=== PATIENT | male | born 1995 | race Caucasian/White ===

== ENCOUNTER 2022-03-22 21:13 | Emergency (ER) | payer OTHER, BC, SELFPAY ==
[2022-03-22 21:50] VITALS: BP 143/85; PULSE 65; RESP 20; TEMP 36.7; O2SAT 98
--- OUTSIDE RECORDS SUMMARY | 2022-03-22 23:36 | XMS_ITS | Encounter Summary ---
:1995 Author Organization [facility] Address [address] [place] [address] Care Team Providers Name Role Phone Laura Tellez MD Primary Care Provider Unavailable Reason for Visit Reason Comments GERD Encounter Details Date Type Department Care Team Description 05/25/2021 Office Visit [place] Laura Tellez Gastroesophageal reflux [address] MD Earline disease, unspecified NW whether esophagitis [place], [place] present ([place]) [id number] Social History Tobacco Use Types Packs/Day Years Used Date Smoking Tobacco: Never Smokeless Tobacco: Never Alcohol Use Standard Drinks/Week Comments Not Currently 0 (1 standard drink = 0.6 oz pure alcoho l) Financial Resource Strain Answer Date Recorded How hard is it for you to pay for the very basics like Not h rajesh at all 04/12/2020 food, housing, medical care, and heating? Food Insecurity Answer Date Recorded Within the past 12 months, you worried that your food would Never true 04/12/2020 run out before you got money to buy more. Within the past 12 months, the food you bought just didn't N ever true 04/12/2020 last and you didn't have money to get more. Transportation Needs Answer Date Recorded In the past 12 months, has lack of transportation kept you f rom No 04/12/2020 medical appointments or from getting medications? In the past 12 months, has lack of transportation kept you f rom No 04/12/2020 meetings, work, or getting things needed for daily living? Sex Assigned at Date Recorded Not on file documented as of this encounter Last Filed Vital Signs Vital Sign Reading Time Taken Comments Blood Pressure 124/82 05/25/2021 3:37 PM POCKET MARKER Pulse 84 05/25/2021 3:37 PM POCKET MARKER Temperature 36.5 ??C (97.7 ??F) 05/25/2021 3:37 PM POCKET MARKER Respiratory Rate 16 05/25/2021 3:37 PM POCKET MARKER Oxygen Saturation 97% 05/25/2021 3:37 PM POCKET MARKER Inhaled Oxygen Concentration - - Weight 130 kg (287 lb 6.4 oz) 05/25/2021 3:37 PM POCKET MARKER wi th shoes Height 178.9 cm (5' 10.43) 05/25/2021 3:37 PM POCKET MARKER with shoes Body Mass Index 40.73 05/25/2021 3:37 PM POCKET MARKER documented in this encounter Patient Instructions Patient InstructionsFrances Earline Tellez MD - 05/25/2021 3:40 PM CST Images from the original note were not included. Patient Education Food Choices for Gastroesophageal Reflux Disease, Adult When you have gastroesophageal reflux disease (GERD), the foods you eat and your eating habits are very important. Choosing the right foods can help ease the discomfort of GERD. Consider working with adietitian to help you make healthy food choices. What are tips for following this plan? Reading food labels ?? Read the label for foods that are low in saturated fat. Foods that have less than 5% of daily value (DV) of fat and 0 g of trans fats may help with your symptoms. Cooking ?? Cook foods using methods other than frying. This may include baking, steaming, grilling, or broiling. These are all methods that do not need a lot of fat for cooking. ?? To add flavor, try to use herbs that are low in spice and acidity. Meal planning ?? Choose healthy foods that are low in fat, such as fruits, vegetables, whole grains, low-fat dairyproducts, lean meats, fish, and poultry. ?? Eat frequent, small meals instead of three large meals each day. Eat your meals slowly, in a relaxed setting. Avoid bending over or lying down until 2-3 hours after eating. ?? Limit high-fat foods such as fatty meats or fried foods. ?? Limit your intake of oils, butter, and shortening to less than 8 teaspoons each day. ?? Avoid the following: ? Foods that cause symptoms. These may be different for different people. Keep a food diary to keep track of foods that cause symptoms. ? Alcohol. ? Drinking large amounts of liquid with meals. ? Eating meals during the 2-3 hours before bed. Lifestyle ?? Maintain a healthy weight. Ask your health care provider what weight is healthy for you. If you need to lose weight, work with your health care provider to do so safely. ?? Exercise for at least 30 minutes on 5 or more days each week, or as told by your health care provider. ?? Avoid wearing clothes that fit tightly around your waist and chest. ?? Do not use any products that contain nicotine or tobacco, such as cigarettes, e-cigarettes, and chewing tobacco. If you need help quitting, ask your health care provider. ?? Sleep with the head of your bed raised. Use a wedge under the mattress or blocks under the bed frame to raise the head of the bed. What foods should I eat? Eat a healthy, well-balanced diet of fruits, vegetables, whole grains, low-fat dairy products, lean meats, fish, and poultry. Each person is different. Foods that may trigger symptoms in one person maynot trigger any symptoms in another person. Work with your health care provider to identify foods that are safe for you. The items listed above may not be a complete list of foods and beverages you can eat. Contact a dietitian for more information. What foods should I avoid? Limiting some of these foods may help in managing the symptoms of GERD. Everyone is different. Consult a dietitian or your health care provider to help you identify the exact foods to avoid, if any. Fruits Any fruits prepared with added fat. Any fruits that cause symptoms. For some people this may includecitrus fruits, such as oranges, grapefruit, pineapple, and erik. Vegetables Deep-fried vegetables. Thai fries. Any vegetables prepared with added fat. Any vegetables that cause symptoms. For some people, this may include tomatoes and tomato products, chili peppers, onions and garlic, and horseradish. Grains Pastries or quick breads with added fat. Meats and other proteins High-fat meats, such as fatty beef or pork, hot dogs, ribs, ham, sausage, salami, and matthews. Fried meat or protein, including fried fish and fried chicken. Nuts and nut butters. Dairy Whole milk and chocolate milk. Sour cream. Cream. Ice cream. Cream cheese. Milkshakes. Fats and oils Butter. Margarine. Shortening. Ghee. Beverages Coffee and tea, with or without caffeine. Carbonated beverages. Sodas. Energy drinks. Fruit juice made with acidic fruits (such as orange or grapefruit). Tomato juice. Alcoholic drinks. Sweets and desserts Chocolate and cocoa. Donuts. Seasonings and condiments Pepper. Peppermint and spearmint. Added salt. Any condiments, herbs, or seasonings that cause symptoms. For some people, this may include arriaza, hot sauce, or vinegar-based salad dressings. The items listed above may not be a complete list of foods and beverages you should avoid. Contact adietitian for more information. Questions to ask your health care provider Diet and lifestyle changes are usually the first steps that are taken to manage symptoms of GERD. Ifdiet and lifestyle changes do not improve your symptoms, talk with your health care provider about taking medicines. Where to find more information ?? International Foundation for Gastrointestinal Disorders: aboutgerd.org Summary ?? When you have gastroesophageal reflux disease (GERD), food and lifestyle choices may be very helpful in easing the discomfort of GERD. ?? Eat frequent, small meals instead of three large meals each day. Eat your meals slowly, in a relaxed setting. Avoid bending over or lying down until 2-3 hours after eating. ?? Limit high-fat foods such as fatty meat or fried foods. This information is not intended to replace advice given to you by your health care provider. Make sure you discuss any questions you have with your health care provider. Document Revised: 02/02/2020 Document Reviewed: 02/02/2020 [employer] Patient Education ?? 2020 [employer]. ET MARKER documented in this encounter Progress Notes Laura Tellez MD - 05/25/2021 3:40 PM CST Images from the original note were not included. Estab Patient Visit Subjective Patient ID: Dasha Wellington is a 25 y.o. male. Chief Complaint Patient presents with ??? GERD HPI Patient is a 25-year-old male who presents for 3 days of worsening GERD symptoms. Prior to 3 days ago he would have heartburn symptoms only periodically and would resolve with Tums. However, the symptoms have been persistent despite Tums and when he took his 's omeprazole, it only worked for a fewhours. Symptoms started after a gastrointestinal illness went through the family and he describes over a week ago being sick with vomiting and diarrhea. He admits the vomiting was quite severe at times. He has had some ongoing decreased appetite. He describes a burning sensation in the lower throat that is always there but worse after eating especially spicy foods such as spaghetti. He denies any dysp hagia. He also has noticed some soreness on his chest wall that is been present in the last couple of days. There is been no change in his physical activity or work routine. Current Outpatient Medications on File Prior to Visit Medication Sig Dispense Refill ??? clobetasol (Temovate) 0.05 % cream Apply topically 2 (two) times a day 60 g 0 ??? fluticasone (FLONASE) 50 MCG/ACT nasal spray Administer 2 sprays into each nostril 1 (one) time each day (Patient not taking: Reported on 03/16/2021) 16 g 5 ??? levocetirizine (Xyzal) 5 MG tablet Take 1 tablet (5 mg total) by mouth 1 (one) time each day in the evening (Patient not taking: Reported on 03/16/2021) 30 tablet 5 No current facility-administered medications on file prior to visit. Environmental and Pollen extract The following portions of the patient's chart were reviewed in this encounter and updated as appropriate: Tobacco Allergies Meds Med Hx Surg Hx Fam Hx Soc Hx Review of Systems See HPI. Objective Physical Exam Blood pressure 124/82, pulse 84, temperature 36.5 ??C (97.7 ??F), temperature source Temporal, resp.rate 16, height 1.789 m (5' 10.43), weight 130 kg (287 lb 6.4 oz), SpO2 97 %. Generally, well-appearing not in acute distress. Pupils equal round reactive to light, sclera nonicteric. Oropharynx is without erythema. Neck is supple without lymphadenopathy or thyromegaly. Heart regular rate and rhythm without murmurs rubs or gallops. Lungs clear to auscultation bilaterally. Abdomen is with normoactive bowel sounds soft nontender nondistended no organomegaly. Musculoskeletal: Patient has tenderness palpation over this anterior chest wall over the sternum. There is no overlying bruising or skin changes. Assessment/Plan Diagnoses and all orders for this visit: Gastroesophageal reflux disease, unspecified whether esophagitis present - omeprazole (PriLOSEC) [address] capsule; Take 1 capsule (20 mg total) by mouth 2 (two) times a day Do not crush or chew. Symptoms likely precipitated by recent gastrointestinal illness that involved forceful vomiting. Discussed trial of PPI, omeprazole 1-2 times daily and discussed taking it on an empty stomach 30 minutes before his meal. Continue 3-4 weeks. Follow up for recheck. This dictation was created with voice recognition software and therefore may contain errors that went unnoticed. Patient Instructions Patient Education Food Choices for Gastroesophageal Reflux Disease, Adult When you have gastroesophageal reflux disease (GERD), the foods you eat and your eating habits are very important. Choosing the right foods can help ease the discomfort of GERD. Consider working with adietitian to help you make healthy food choices. What are tips for following this plan? Reading food labels ?? Read the label for foods that are low in saturated fat. Foods that have less than 5% of daily value (DV) of fat and 0 g of trans fats may help with your symptoms. Cooking ?? Cook foods using methods other than frying. This may include baking, steaming, grilling, or broiling. These are all methods that do not need a lot of fat for cooking. ?? To add flavor, try to use herbs that are low in spice and acidity. Meal planning ?? Choose healthy foods that are low in fat, such as fruits, vegetables, whole grains, low-fat dairyproducts, lean meats, fish, and poultry. ?? Eat frequent, small meals instead of three large meals each day. Eat your meals slowly, in a relaxed setting. Avoid bending over or lying down until 2-3 hours after eating. ?? Limit high-fat foods such as fatty meats or fried foods. ?? Limit your intake of oils, butter, and shortening to less than 8 teaspoons each day. ?? Avoid the following: ? Foods that cause symptoms. These may be different for different people. Keep a food diary to keep track of foods that cause symptoms. ? Alcohol. ? Drinking large amounts of liquid with meals. ? Eating meals during the 2-3 hours before bed. Lifestyle ?? Maintain a healthy weight. Ask your health care provider what weight is healthy for you. If you need to lose weight, work with your health care provider to do so safely. ?? Exercise for at least 30 minutes on 5 or more days each week, or as told by your health care provider. ?? Avoid wearing clothes that fit tightly around your waist and chest. ?? Do not use any products that contain nicotine or tobacco, such as cigarettes, e-cigarettes, and chewing tobacco. If you need help quitting, ask your health care provider. ?? Sleep with the head of your bed raised. Use a wedge under the mattress or blocks under the bed frame to raise the head of the bed. What foods should I eat? Eat a healthy, well-balanced diet of fruits, vegetables, whole grains, low-fat dairy products, lean meats, fish, and poultry. Each person is different. Foods that may trigger symptoms in one person maynot trigger any symptoms in another person. Work with your health care provider to identify foods that are safe for you. The items listed above may not be a complete list of foods and beverages you can eat. Contact a dietitian for more information. What foods should I avoid? Limiting some of these foods may help in managing the symptoms of GERD. Everyone is different. Consult a dietitian or your health care provider to help you identify the exact foods to avoid, if any. Fruits Any fruits prepared with added fat. Any fruits that cause symptoms. For some people this may includecitrus fruits, such as oranges, grapefruit, pineapple, and erik. Vegetables Deep-fried vegetables. Thai fries. Any vegetables prepared with added fat. Any vegetables that cause symptoms. For some people, this may include tomatoes and tomato products, chili peppers, onions and garlic, and horseradish. Grains Pastries or quick breads with added fat. Meats and other proteins High-fat meats, such as fatty beef or pork, hot dogs, ribs, ham, sausage, salami, and matthews. Fried meat or protein, including fried fish and fried chicken. Nuts and nut butters. Dairy Whole milk and chocolate milk. Sour cream. Cream. Ice cream. Cream cheese. Milkshakes. Fats and oils Butter. Margarine. Shortening. Ghee. Beverages Coffee and tea, with or without caffeine. Carbonated beverages. Sodas. Energy drinks. Fruit juice made with acidic fruits (such as orange or grapefruit). Tomato juice. Alcoholic drinks. Sweets and desserts Chocolate and cocoa. Donuts. Seasonings and condiments Pepper. Peppermint and spearmint. Added salt. Any condiments, herbs, or seasonings that cause symptoms. For some people, this may include arriaza, hot sauce, or vinegar-based salad dressings. The items listed above may not be a complete list of foods and beverages you should avoid. Contact adietitian for more information. Questions to ask your health care provider Diet and lifestyle changes are usually the first steps that are taken to manage symptoms of GERD. Ifdiet and lifestyle changes do not improve your symptoms, talk with your health care provider about taking medicines. Where to find more information ?? International Foundation for Gastrointestinal Disorders: aboutgerd.org Summary ?? When you have gastroesophageal reflux disease (GERD), food and lifestyle choices may be very helpful in easing the discomfort of GERD. ?? Eat frequent, small meals instead of three large meals each day. Eat your meals slowly, in a relaxed setting. Avoid bending over or lying down until 2-3 hours after eating. ?? Limit high-fat foods such as fatty meat or fried foods. This information is not intended to replace advice given to you by your health care provider. Make sure you discuss any questions you have with your health care provider. Document Revised: 02/02/2020 Document Reviewed: 02/02/2020 [employer] Patient Education ?? 2020 [employer]. ET MARKER documented in this encounter Plan of Treatment Not on filedocumented as of this encounter Visit Diagnoses Diagnosis Gastroesophageal reflux disease, unspeci fied whether esophagitis present - Primary documented in this encounter Care Teams Event Specialist Relationship Specialty Start Date End Date Laura Tellez MD PCP - General Family Medicine 08/02/20 documented as of this encounter
--- OUTSIDE RECORDS SUMMARY | 2022-03-22 23:36 | XMS_ITS | Clinical Summary ---
:1995 Author Organization [facility] Address [address] [place] [address] Care Team Providers Name Role Phone Yumiko Andrade MD Primary Care Provider [phone] Allergies Active Allergy Reactions Severity Noted Date Comments Environmental High 01/01/2019 Soy [place] Dust: Sneezing, eyes red and swelling Pollen Extract High 01/01/2019 Sneezing, eye s red and swelling Medications Medication Sig Dispensed Refills Start Date End Date Status fluticasone (FLONASE) Administer 2 16 g 1 10/12/202109/22 Active 50 MCG/ACT nasal sprays into each sprayIndications: nostril 1 (one) Seasonal allergic time each day rhinitis due to pollen levocetirizine Take 1 tablet (5 30 tablet 1 10/12/2021 Active (Xyzal) 5 MG mg total) by tabletIndications: mouth 1 (one) Seasonal allergic time each day in rhinitis due to the evening pollen Active Problems Problem Noted Date Morbid obesity with BMI of 40.0-44.9, adult 04/26/2020 Immunizations Name Administration Dates Next Due Hepatitis B 05/16/2018 Influenza 6mo-49yrs Quad Preservative Free IM 05/16/2018 MMR 05/16/2018 Tdap 05/16/2018 Family History Medical History Relation Comments LYLA disease Father Other Father stomach surgery Cancer Father's Brother 1 unknown type No Known Problems Father's Brother 2 No Known Problems Father's Brother 3 No Known Problems Father's Brother 4 No Known Problems Father's Brother 5 No Known Problems Father's Brother 6 No Known Problems Father's Brother 7 No Known Problems Father's Sister 1 No Known Problems Father's Sister 2 No Known Problems Father's Sister 3 No Known Problems Father's Sister 4 No Known Problems Father's Sister 5 No Known Problems Half-Brother 2 Diabetes Maternal Grandfather type 2 with amputat ion No Known Problems Maternal Grandmother Heart disease Mother Hypertension Mother Osteoporosis Mother Other Mother smokes 3 packs a day Diabetes Mother's Brother 1 type 2 Diabetes Mother's Brother 2 type 2 Heart disease Mother's Brother 2 triple bypass HIV Mother's Sister Cancer Paternal Grandfather lung Cancer Paternal Grandmother breast No Known Problems Sister 1 No Known Problems Sister 2 No Known Problems Son Relation Status Comments Father Alive Father's Brother 1 Alive Father's Brother 2 Alive Father's Brother 3 Alive Father's Brother 4 Alive Father's Brother 5 Alive Father's Brother 6 Alive Father's Brother 7 Alive Father's Sister 1 Alive Father's Sister 2 Alive Father's Sister 3 Alive Father's Sister 4 Alive Father's Sister 5 Alive Half-Brother 1 Alive Half-Brother 2 Alive Maternal Grandfather Maternal Grandmother Mother Alive Mother's Brother 1 Alive Mother's Brother 2 Mother's Sister Paternal Grandfather Paternal Grandmother Alive Sister 1 Alive Sister 2 Alive Son Alive Social History Tobacco Use Types Packs/Day Years [...] Assigned at Date Recorded Not on file Last Filed Vital Signs Vital Sign Reading Time Taken Comments Blood Pressure 124/82 05/25/2021 3:37 PM FORMING MACHINE ADJUSTER Pulse 84 05/25/2021 3:37 PM FORMING MACHINE ADJUSTER Temperature 36.5 ??C (97.7 ??F) 05/25/2021 3:37 PM FORMING MACHINE ADJUSTER Respiratory Rate 16 05/25/2021 3:37 PM FORMING MACHINE ADJUSTER Oxygen Saturation 97% 05/25/2021 3:37 PM FORMING MACHINE ADJUSTER Inhaled Oxygen Concentration - - Weight 130 kg (287 lb 6.4 oz) 05/25/2021 3:37 PM FORMING MACHINE ADJUSTER wi th shoes Height 178.9 cm (5' 10.43) 05/25/2021 3:37 PM FORMING MACHINE ADJUSTER with shoes Body Mass Index 40.73 05/25/2021 3:37 PM FORMING MACHINE ADJUSTER Plan of Treatment Health Maintenance Due Date Last Done Comments COVID-19 Vaccine (2 - Booster 09/15/2020 07/21/2020, for Kishore series) 07/21/2020 DTaP,Tdap,and Td Vaccines (2 05/16/2028 05/16/2018 - Td or Tdap) HPV Vaccines Aged Out No longer eligib le based on patient's age to complete this to pic Pneumococcal Vaccine: Aged Out No longer eligible based Pediatrics (0 to 5 Years) and on patient's age to At-Risk Patients (6 to 64 comple te this topic Years) Insurance Payer Benefit Plan / Subscriber ID Effective Dates Phone Addre ss Type Group BCBS OF BCBS OF [id number] 2018-[place] [address] [id number] [facility] [place] [place] [address] Care Teams Inspection Machine Tender Relationship Specialty Start Date End Date Yuimko Andrade MD PCP - General 08/09/[address] [place] [address] [address] [place] [id number]
--- OUTSIDE RECORDS SUMMARY | 2022-03-22 23:36 | XMS_ITS | Encounter Summary ---
:[address] [facility] Address [address] [place] [address] Care Team Providers Name Role Phone Yumiko Andrade MD Primary Care Provider [phone] Reason for Visit Reason Onset Date Comments Med Refill 10/12/2021 Encounter Details Date Type Department Care Team Description 10/12/2021 Telephone Diana Yumiko Andrade, Med Refill [address] [place], [place] [address] [address] [phone] [place] [phone] (Wo rk) Social History Tobacco Use Types Packs/Day Years [...] on file documented as of this encounter Miscellaneous Notes Telephone Encounter - Jamilah Mejia RN - 10/12/2021 1:36 PM CDT Patient informed prescriptions sent to pharmacy for 2 months, needs appointment to establish care. Telephone Encounter - Jamilah Mejia RN - 10/12/2021 1:33 PM CDT Xyzal 5 mg every evening and Flonase 50MCG/ACT nasal spray refilled for 30 days with one refill to get through until able to come in for appointment to establish care. Telephone Encounter - Mabel Harman - 10/12/2021 9:43 AM CDT Patient needs his seasonal allergy medications refilled. He needs his Flonaxe and Xzal to [facility]. Patients work schedule will not allow him to be come in for 3 to 4 weeks. Patient knows in thefuture he will have to make an appointment to establish care when his work schedule allows. documented in this encounter Plan of Treatment Not on filedocumented as of this encounter Visit Diagnoses Diagnosis Seasonal allergic rhinitis due to pollen documented in this encounter Care Teams Picking Supervisor Relationship Specialty Start Date End Date Yumiko Andrade MD PCP - General 08/09/[address] [place] [phone] documented as of this encounter
--- OUTSIDE RECORDS SUMMARY | 2022-03-22 23:37 | XMS_ITS | Encounter Summary ---
:1995 Author Organization [facility] Address [address] [place] [address] Care Team Providers Name Role Phone Laura Tellez MD Primary Care Provider Unavailable Reason for Visit Reason Onset Date Comments needs letter/refills 09/28/2020 Encounter Details Date Type Department Care Team Description 09/28/2020 Telephone Laura Tyler, needs letter/refills [address] [place] [id number] Social History Tobacco Use Types Packs/Day Years [...] this encounter Miscellaneous Notes Telephone Encounter - Zakia Urbina MA - 09/29/2020 10:57 AM CDT Spoke to Jairon regarding a note for work stating his allergies are the cause of the redness in his eyes. He agrees to see Dr. Peralta for this and was transferred to [facility] to schedule. Telephone Encounter - Laura Tellez MD - 09/29/2020 8:31 AM CDT I cannot recall if he has seen Dr. Peralta for his allergies. I see a preop with Fabian in the past but Sathish not think he specifically been evaluated for his allergies. I think it would be best for him to be seen by citrix systems administrator and have confirmatory diagnosis and no. Let me know if I can place a referral forallergy. Telephone Encounter - Li Cain RN - 09/28/2020 1:30 PM CDT Letter needed for employer Telephone Encounter - Lesvia Brown - 09/28/2020 1:20 PM CDT Patient would like letter stating that he has been seen for allergies and takes medication for the allergies. He gets red eyes and now the employer was worried when they saw his red eyes today. They wrote up an incident report as they thought he got something in his eye just in case it became a work comp issue. He is also out of his nasal spray and has about a half of a bottle left of eye drops left. He will try to call pharmacy to refill. 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 documented in this encounter Plan of Treatment Not on filedocumented as of this encounter Visit Diagnoses Not on filedocumented in this encounter Care Teams Bill Poster Installer Relationship Specialty Start Date End Date Laura Tellez MD PCP - General Family Medicine 08/02/20 documented as of this encounter
--- OUTSIDE RECORDS SUMMARY | 2022-03-22 23:37 | XMS_ITS | Encounter Summary ---
:1995 Author Organization [facility] Address [address] [place] [address] Care Team Providers Name Role Phone Laura Tellez MD Primary Care Provider Unavailable Reason for Visit Reason Onset Date Comments Work note 10/04/2020 Encounter Details Date Type Department Care Team Description 10/04/2020 Telephone Robinson Laura Tellez MD Work note [address] [place] [address] Social History Tobacco Use Types Packs/Day Years [...] this encounter Miscellaneous Notes Telephone Encounter - Celina Esteban - 10/04/2020 11:35 AM CDT Called pt. He is on his way to pick it up Telephone Encounter - Laura Tellez MD - 10/04/2020 11:28 AM CDT I wrote a generic note which had like him to review and make sure he is okay with the information that I have put into the note. Laura Tellez MD Telephone Encounter - Celina Orellana - 10/04/2020 11:11 AM CDT Pt is needing today before noon if possible. He will need it for reporting to work today at 2 at [employer]. Telephone Encounter - Celina Orellana - 10/04/2020 8:58 AM CDT PT needs a note for work stating that he has allergies. He doesn't need it to be specific as to whathe's allergic to. He had an episode at work, and he needs the note to give the employer to clarify that this is NOT a work comp issue. Please let hie know when it is available for rock picker documented in this encounter Plan of Treatment Not on filedocumented as of this encounter Visit Diagnoses Not on filedocumented in this encounter Care Teams [employer] Combat Skills Relationship Specialty Start Date End Date Laura Tellez MD PCP - General Family Medicine 08/02/20 documented as of this encounter
--- OUTSIDE RECORDS SUMMARY | 2022-03-22 23:37 | XMS_ITS | Encounter Summary ---
:1995 Author Organization [facility] Address [address] [place] [address] Care Team Providers Name Role Phone Marilou Ruiz PA-C Primary Care Provider Unavailable Reason for Visit Reason Onset Date Comments seasonal allergy concerns 09/29/2019 Encounter Details Date Type Department Care Team Description 09/29/2019 Telephone Marilou Marques, seasonal allergy [address] [facility] [place], [place] [address] Social History Tobacco Use Types Packs/Day Years [...] this encounter Miscellaneous Notes Telephone Encounter - Li Cain RN - 09/29/2019 5:11 PM CDT Appointment made for tomorrow morning Telephone Encounter - Laura Tellez MD - 09/29/2019 5:05 PM CDT Recommend appointment. Laura Tellez MD Telephone Encounter - Zakia Urbina MA - 09/29/2019 4:58 PM CDT Spoke to patient who states he is having an almost immediate reaction to his environmental allergies. He gets congested, drainage, and itchy, watery eyes. He also stated that his vision is blurry and he confirmed it is from excessive tear production and not due to his eyes being unable to focus. He has been alternating his oral antihistamines of Lily and Claritin, but has no relief. 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 Please advise ALEJANDRA, thank you. Telephone Encounter - Zakia Shaffer - 09/29/2019 4:06 PM CDT Pt called back really wanting to talk with someone about his allergies as his eyes arefoggy and heis wondering if he should even go to work at 10:00 tonight. Please call Pt at [phone] to advise. Telephone Encounter - Zakia Shaffer - 09/29/2019 3:13 PM CDT Pt's Lsevia called stating Pt's seasonal allergies have really intensified. Pt has been alternating between Claritin and Lily but it is not helping and his allergies are getting much worse. Please call Pt at [phone] to advise. documented in this encounter Plan of Treatment Not on filedocumented as of this encounter Visit Diagnoses Not on filedocumented in this encounter Care Teams Hydraulic Blocker Relationship Specialty Start Date End Date Marilou Ruiz PA-C PCP - General Family Medicine 08/19/1906/21 documented as of this encounter
--- OUTSIDE RECORDS SUMMARY | 2022-03-22 23:37 | XMS_ITS | Encounter Summary ---
:1995 Author Organization [facility] Address [address] [place] [address] Care Team Providers Name Role Phone Laura Tellez MD Primary Care Provider Unavailable Reason for Visit Reason Comments skin issues bilateral hands palm of right hand and pal m of 3rd digit left hand. Does not see DERM until NOV, wojoaquín d like something to help him until then Encounter Details Date Type Department Care Team Description 10/14/2020 Office Visit Azucena Troncoso PA-C Hand dermatitis [address] [place] [address] (Primary Dx) [place] [address] [place], [place] [phone] [id number] (Wo rk) Social History Tobacco Use Types [...] Sign Reading Time Taken Comments Blood Pressure 124/72 10/14/2020 4:05 PM CDT Pulse 76 10/14/2020 4:05 PM CDT Temperature 37.2 ??C (99 ??F) 10/14/2020 4:05 PM CDT Respiratory Rate 20 10/14/2020 4:05 PM CDT Oxygen Saturation 96% 10/14/2020 4:05 PM CDT Inhaled Oxygen Concentration - - Weight 127 kg (279 lb 8.7 oz) 10/14/2020 4:05 PM CDT Height 177.7 cm (5' 9.96) 10/14/2020 4:05 PM CDT Body Mass Index 40.15 10/14/2020 4:05 PM CDT documented in this encounter Progress Notes Azucena Lee PA-C - 10/14/2020 4:00 PM CDT Estab Patient Visit Subjective Patient ID: Dasha Wellington is a 25 y.o. male. Chief Complaint Patient presents with ??? skin issues bilateral hands palm of right hand and palm of 3rd digit left hand. Does not see DERM until NOV, would like something to help him until then HPI Patient is a 25-year-old male here today for evaluation of his bilateral hands. Patient is a [id number] who endorses severe dryness in bilateral hands with intermittent cracking and fissuring of the skin on his bilateral hands right is worse than left. Notes that this has been ongoing for several years and has been intermittently been using triamcinolone ointment on his bilateral hands. He also uses Goldbond to moisturize his hands. He has been using gloves at work regularly although he is required to wash his hands frequently. Patient does have an upcoming appointment with dermatology forfurther evaluation in late November. States that he is currently in severe pain and has been having dif ficulty doing his job and activities he enjoys such as riding his motorcycle due to his pain. Also, notes that when he applies the triamcinolone ointment he finds that his hands are slippery and has a difficult time doing his job. Patient denies any latex allergy. Allergies reviewed. Review of Systems All systems negative, except HPI Objective Physical Exam Vitals and nursing note reviewed. Constitutional: Appearance: Normal appearance. Skin: General: Skin is dry. Comments: Bilateral hands are extremely dry, with visible fissures on the right hand first and second digits. Neurological: Mental Status: He is alert. Assessment/Plan Diagnoses and all orders for this visit: Hand dermatitis - clobetasol (Temovate) 0.05 % cream; Apply topically 2 (two) times a day Patient endorses severe dryness and intermittent cracking and fissuring of bilateral hands. R>L. Currently not improving with triamcinolone ointments. Prescribed super potent clobetasol cream for patient to apply on his hands twice daily x7 days. Also informed patient that he should use a cream or ointment based emollients for his hands regularly. He should wear his work gloves and also cotton gloves to help keep the moisture in. He will also see dermatology in late November. Follow up as needed. Patient understands and is agreeable with the plan. Questions/concerns addressed. documented in this encounter Plan of Treatment Not on filedocumented as of this encounter Visit Diagnoses Diagnosis Hand dermatitis - Primary Contact dermatitis and other eczema, due to unspecified cause documented in this encounter Care Teams Fleet Manager Relationship Specialty Start Date End Date Laura Tellez MD PCP - General Family Medicine 08/02/20 documented as of this encounter
--- OUTSIDE RECORDS SUMMARY | 2022-03-22 23:37 | XMS_ITS | Encounter Summary ---
:1995 Author Organization [facility] Address [address] [place] [address] Care Team Providers Name Role Phone Laura Tellez MD Primary Care Provider Unavailable Reason for Visit Reason Comments DOT Encounter Details Date Type Department Care Team Description 11/05/2020 Office Visit Laura Tyler Encounter for [address] [place] MD Earline examination required by [place] [id number] [place] [phone] Transportation (DOT) (Primary Dx) Social History Tobacco Use Types Packs/Day Years [...] Sign Reading Time Taken Comments Blood Pressure 118/78 11/05/2020 8:52 AM CDT Pulse 81 11/05/2020 8:52 AM CDT Temperature 37 ??C (98.6 ??F) 11/05/2020 8:52 AM CDT Respiratory Rate 16 11/05/2020 8:52 AM CDT Oxygen Saturation 98% 11/05/2020 8:52 AM CDT Inhaled Oxygen Concentration - - Weight 128 kg (281 lb 12.8 oz) 11/05/2020 8:52 AM CDT Height 177.8 cm (5' 10) 11/05/2020 8:52 AM CDT Body Mass Index 40.43 11/05/2020 8:52 AM CDT documented in this encounter Progress Notes Laura Tellez MD - 11/05/2020 9:00 AM CDT Occ Exam Subjective Patient ID: Dasha Wellington is a 25 y.o. male who presents for DOT physical. Chief Complaint Patient presents with ??? 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 Last one was done through a chiropractor. He says he has always had every 2-year certificates. 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 His regular full[place]. Past medical history significant for mild head concussions as a child playing rugby. Denies significant loss of consciousness or seizures. He has had fractures including left thumb, ankle and nose thathave healed without incident. He was hospitalized for 8 months when he was in fourth grade for what he believes was bacterial meningitis with no residual effects. He wears corrective lenses for distance sometimes. Does not drink alcohol or use tobacco. Current Outpatient Medications on File Prior to Visit Medication Sig Dispense Refill ??? clobetasol (Temovate) 0.05 % cream Apply topically 2 (two) times a day 60 g 0 ??? fluticasone (FLONASE) 50 MCG/ACT nasal spray Administer 2 sprays into each nostril 1 (one) time each day 16 g 5 ??? levocetirizine (Xyzal) 5 MG tablet Take 1 tablet (5 mg total) by mouth 1 (one) time each day in the evening (Patient taking differently: Take 5 mg by mouth 1 (one) time each day in the evening allergies) 30 tablet 5 ??? triamcinolone (KENALOG) 0.5 % ointment Apply topically 2 (two) times a day hands 30 g 3 No current facility-administered medications on file prior to visit. Environmental and Pollen extract There are no preventive care reminders to display for this patient. The following portions of the patient's chart were reviewed in this encounter and updated as appropriate: Tobacco Allergies Meds Med Hx Surg Hx Fam Hx Soc Hx Review of Systems See HPI. See scanned paperwork. Objective Physical Exam Blood pressure 118/78, pulse 81, temperature 37 ??C (98.6 ??F), temperature source Temporal, resp. rate 16, height 1.778 m (5' 10), weight 128 kg (281 lb 12.8 oz), SpO2 98 %. Generally, well-appearing not in acute distress. Head: without deformity/abnormality. Pupils equal round reactive to light, sclera nonicteric. Funduscopic exam is normal. Peripheral vision > 70 degrees bilaterally. Ears: Right and left tympanic membranes and external canals are normal. Oropharynx is clear. Neck is supple without lymphadenopathy or thyromegaly. Heart regular rate and rhythm without murmurs rubs or gallops. Lungs clear to auscultation bilaterally. Abdomen: Normoactive bowel sounds abdomen is soft nontender nondistended no organomegaly : No palpable hernias. No inguinal lymphadenopathy. Lower extremities without edema. Intact pedal pulses. Musculoskeletal: Intact ROM and strength upper and lower extremities. Normal bilateral laserist strength. Spine without deformity and non tender to palpation. Neuro: Intact sensation upper and lower extremities. Symmetrical reflexes upper and lower extremities. Normal gait. Skin: Without lesions, rash or scars. Hearing exam passed. He is 20/40 in each eye without correction and 20/25 with correction. No exam data present Urine normal specific gravity, negative for albumin and glucose. Assessment/Plan There are no diagnoses linked to this encounter. Qualifies for 2 year certificate. This dictation was created with voice recognition software and therefore may contain errors that went unnoticed. There are no Patient Instructions on file for this visit. documented in this encounter Plan of Treatment Not on filedocumented as of this encounter Visit Diagnoses Diagnosis Encounter for examination required by De partment of Transportation (DOT) - Primary documented in this encounter Care Teams Community Health Worker Relationship Specialty Start Date End Date Laura Tellez MD PCP - General Family Medicine 08/02/20 documented as of this encounter
--- OUTSIDE RECORDS SUMMARY | 2022-03-22 23:37 | XMS_ITS | Encounter Summary ---
:1995 Author Organization [facility] Address [address] [place] [address] Care Team Providers Name Role Phone Marilou Ruiz PA-C Primary Care Provider Unavailable Encounter Details Date Type Department Care Team Description 04/26/2020 Orders Only [facility] Gayle Rodgers Encounter for screening [address] B, CRISIS INTERVENTION COUNSELOR, PUBLIC HEALTH SANITARIAN TECHNICIAN for CO VID-19 (Primary [address] Dx) [place] [id number] Social History Tobacco Use Types Packs/Day Years [...] on file documented as of this encounter Plan of Treatment Not on filedocumented as of this encounter Results SARS Coronavirus 2 RNA detection, v (04/27/2020 6:36 AM ACTIVITY ASSISTANT) [facility] Method Time Signature SARS Covid Nasopharyngeal 04/27/2020 [facility] specimen 6:09 PM ACTIVITY ASSISTANT LAB[facility]ATORIES source Patient Race White 04/27/2020 [facility] 6:09 PM ACTIVITY ASSISTANT [facility]IES Patient Unknown 04/27/2020 [facility] Ethnicity 6:09 PM ACTIVITY ASSISTANT LAB[facility]IES SARS CoV2 Undetected Undetected 04/27/2020 [facility] RNA 6:09 PM [facility]IV[facility] ASSISTANT [facility] Comment: SARS-CoV-2 RNA absent. This result does not rule out COVID-19 in the patient, as the sensitiv ity of the test depends on the timing of the specimen co llection and the quality of the specimen. Result should b e correlated with patient's history and clinical presentat ion. Method - 04/27/2020 6:09 PM ACTIVITY ASSISTANT [facility] Comment: THFSH- This PCR test uses the TaqPath CO VID-19 Combo Kit (VeriTainer Serge.) and is perform ed on the [employer] particle proces sor and [employer] Fast Dx Real-Time PCR Sy stem. It has received Emergency Use Authorization (EU A) by the U.S. Food and Drug Administration. Performance caity racteristics were verified by [facility] in a manner cons istent with CLIA requirements. Fact sheets for this Emergency Use Autho rization (EUA) can be found at the following links: https://www.fda.gov/media/240024/downloa d for Healthcare Providers https://www.fda.gov/media/907100/downloa d for Patients Test Performed by: [place] [address] Biomedical Engineer: Cade Cespedes M.D. Ph. D.; CLIA# [id number] Specimen Anatomical Collection Method Collection Time Receive d Time (Source) Location / / Volume Laterality Swab 04/27/2020 6:36 AM 7:45 (Nasopharyngeal) ACTIVITY ASSISTANT AM ACTIVITY ASSISTANT Gayle Rodgers APRN, PUBLIC HEALTH SANITARIAN TECHNICIAN LAB MOLECULAR DIAGNOSTICS OR DERABLES Performing Organization Address City/State/ZIP Code Phon e Number [facility] see result attachment for specific address documented in this encounter Visit Diagnoses Diagnosis Encounter for screening for COVID-19 - P rimary documented in this encounter Care Teams Cd Reactor Operator Head Relationship Specialty Start Date End Date Marilou Ruiz PA-C PCP - General Family Medicine 08/19/1906/21 documented as of this encounter
--- OUTSIDE RECORDS SUMMARY | 2022-03-22 23:37 | XMS_ITS | Encounter Summary ---
:1995 Author Organization [facility] Address [address] [place] [address] Care Team Providers Name Role Phone Laura Tellez MD Primary Care Provider Unavailable Reason for Visit Reason Onset Date Comments Covid Triage 03/10/2021 Encounter Details Date Type Department Care Team Description 03/10/2021 Telephone [facility] Roxana Hahn APRN, Covid Triage [address] [facility] [address] [place] [address] [place], [place] [phone] (Wo rk) Social History Tobacco Use Types [...] on file documented as of this encounter Progress Notes Shirley Alfred RN - 03/10/2021 12:34 PM CST 03/10/21 1233 COVID Algorithm Patient has the following symptoms: Cough;Sore throat;Nasal congestion;Muscle pain Date of onset of symptoms 03/09/21 Acuity evaluation - patient has the following symptoms: None Patient belongs to a high risk group: None Patient has the following special indications Patient/Parent/Guardian requests;Employee/Employer requesting surveillance Patient has close contact with confirmed COVID case: Yes ( is positive) Any positive indication in any question? Yes Is Patient Symptomatic? Yes Patient has the following strep criteria: Pt. is 3 yrs or older and less than 76 years old Patient has the following flu symptom criteria: Muscle aches or headache;Cough Instructions for patients not meeting flu symptom criteria: Send for COVID SCALE ADJUSTER swab Patient instructed to report to the screening station for testing and then home. Patient instructed to remain home until: ??? Notified of results AND If symptomatic: ??? No fever for at least 24 hours (one full day without fever without the use of fever reducers AND ??? Other symptoms have improved Patient instructed that if they want to be seen by a provider for their symptoms, they can request atelehealth visit when calling to schedule. ING AND SHIPPING CLERK documented in this encounter Plan of Treatment Not on filedocumented as of this encounter Results SARS Coronavirus 2 RNA detection, v (03/10/2021 1:55 PM PACKING AND SHIPPING CLERK) [facility] Method Time Signature SARS Covid Nasopharyngeal 03/10/2021 [facility] specimen 9:12 PM PACKING AND SHIPPING CLERK LABORATORIES source SARS CoV2 Undetected Undetected 03/10/2021 [facility] RNA 9:12 PM PACKING AND SHIPPING CLERK LABORATORIES Comment: SARS-CoV-2 RNA absent. This result does not rule out COVID-19 in the patient, as the sensitiv ity of the test depends on the timing of the specimen co llection and the quality of the specimen. Result should b e correlated with patient's history and clinical presentat ion. Method - 03/10/2021 9:12 PM PACKING AND SHIPPING CLERK [facility] Comment: LETICIA- This PCR test uses the leticia SARS -CoV-2 assay ([employer] and is perform ed on the leticia 6800 System. It has received Emergency U se Authorization (EUA) by the U.S. Food and Drug Administ ration. Performance characteristics were verified by [facility] inic in a manner consistent with CLIA requirements. Fact sheets for this Emergency Use Autho rization (EUA) can be found at the following links: https://www.fda.gov/media/497301/downloa d for Healthcare Providers https://www.fda.gov/media/098407/downloa d for Patients Test Performed by: [facility] [address] [place] [address] Territory Sales Manager: Cade Cespedes M.D. Ph. D.; CLIA# [id number] Specimen Anatomical Collection Method Collection Time Receive d Time (Source) Location / / Volume Laterality Swab 03/10/2021 1:55 PM 1:55 (Nasopharyngeal) PACKING AND SHIPPING CLERK PM PACKING AND SHIPPING CLERK Roxana Hahn APRN, CNP LAB MOLECULAR DIAGNOSTICS OR DERABLES Performing Organization Address City/State/ZIP Code Phon e Number [facility] see result attachment for specific address documented in this encounter Visit Diagnoses Diagnosis Encounter for screening laboratory testi ng for COVID-19 virus - Primary documented in this encounter Care Teams Gas Regulator Repairer Helper Relationship Specialty Start Date End Date Laura Tellez MD PCP - General Family Medicine 08/02/20 documented as of this encounter
--- OUTSIDE RECORDS SUMMARY | 2022-03-22 23:37 | XMS_ITS | Encounter Summary ---
:1995 Author Organization [facility] Address [address] [place] [address] Care Team Providers Name Role Phone Laura Tellez MD Primary Care Provider Unavailable Reason for Visit Reason Onset Date Comments Covid Triage 03/21/2021 Encounter Details Date Type Department Care Team Description 03/21/2021 Telephone [facility] Kacie Reyes, Covid Triage 102 [facility], [facility] [address] [place] [address] Social History Tobacco Use Types Packs/Day Years [...] documented as of this encounter Progress Notes MYKEL Grajeda - 03/21/2021 8:57 AM CST 03/21/21 0800 COVID Algorithm Patient has the following symptoms: Cough;Sore throat;Nasal congestion;Muscle pain Date of onset of symptoms 03/14/21 Acuity evaluation - patient has the following symptoms: None Patient belongs to a high risk group: None Patient has the following special indications Employee/Employer requesting surveillance Patient has close contact with confirmed COVID case: Yes Any positive indication in any question? Yes Is Patient Symptomatic? Yes Patient has the following strep criteria: None Patient has the following flu symptom criteria: None Instructions for patients not meeting flu symptom criteria: Send for COVID DRILLING ASSISTANT swab Patient instructed to report to the [...] request atelehealth visit when calling to schedule. ECTIONS OFFICER documented in this encounter Plan of Treatment Not on filedocumented as of this encounter Results SARS Coronavirus 2 RNA detection, v (03/21/2021 10:42 AM CORRECTIONS OFFICER) [facility] Method Time Signature SARS Covid Nasopharyngeal 03/22/2021 [facility] specimen 12:39 AM LABORATORIES source CORRECTIONS OFFICER SARS CoV2 Undetected Undetected 03/22/2021 [facility] RNA 12:39 AM LABORATORIES CORRECTIONS OFFICER Comment: SARS-CoV-2 RNA absent. This result does not rule out COVID-19 in the patient, as the sensitiv ity of the test depends on the timing of the specimen co llection and the quality of the specimen. Result should b e correlated with patient's history and clinical presentat ion. Method - 03/22/2021 12:39 AM CORRECTIONS OFFICER [facility] Comment: LETICIA- This PCR test uses the leticia SARS -CoV-2 assay ([employer] and is perform ed on the leticia 6800 System. It has received Emergency U se Authorization (EUA) by the U.S. Food and Drug Administ ration. Performance characteristics were verified by [facility] inic in a manner consistent with CLIA requirements. Fact sheets for this Emergency Use Autho rization (EUA) can be found at the following links: https://www.fda.gov/media/777144/downloa d for Healthcare Providers https://www.fda.gov/media/568772/downloa d for Patients Test Performed by: [facility] [address] [place] [id number] 90 Research Physiologist: Cade Cespedes M.D. Ph. D.; [facility]# [id number] Specimen Anatomical Collection Method Collection Time Receive d Time (Source) Location / / Volume Laterality Swab 03/21/2021 10:42 03/21/2021 (Nasopharyngeal) AM CORRECTIONS OFFICER 10:42 AM CS T Kacie Reyes APRN, MARINE FIREFIGHTER LAB MOLECULAR DIAGNOSTICS O RDERABLES Performing Organization Address City/State/ZIP Code Phon e Number [facility] see result attachment for specific address documented in this encounter Visit Diagnoses Diagnosis Encounter for screening laboratory testi ng for COVID-19 virus - Primary documented in this encounter Care Teams Obstetrical Tech Relationship Specialty Start Date End Date Laura Tellez MD PCP - General Family Medicine 08/02/20 documented as of this encounter
--- OUTSIDE RECORDS SUMMARY | 2022-03-22 23:37 | XMS_ITS | Encounter Summary ---
:[address] [facility] Address [address] [place] [address] Care Team Providers Name Role Phone Laura Tellez MD Primary Care Provider Unavailable Reason for Visit Reason Comments Sore Throat x 5 days Encounter Details Date Type Department Care Team Description 08/02/2020 Office Visit Laura Tyler Sore throat (Primary Dx); [address] [facility] Ricky Patten MD Seasonal allergic rhinitis d ue to pollen; [place] [id number] Lipid screening; [phone] Racing heart be at; Diabetes mellit us screening Social History Tobacco Use Types Packs/Day Years [...] Sign Reading Time Taken Comments Blood Pressure 118/70 08/02/2020 1:06 PM CDT Pulse 67 08/02/2020 1:06 PM CDT Temperature 36.5 ??C (97.7 ??F) 08/02/2020 1:06 PM CDT Respiratory Rate 14 08/02/2020 1:06 PM CDT Oxygen Saturation 96% 08/02/2020 1:06 PM CDT Inhaled Oxygen Concentration - - Weight 127 kg (280 lb 3.3 oz) 08/02/2020 1:06 PM CDT Height 178.8 cm (5' 10.39) 08/02/2020 1:06 PM CDT Body Mass Index 39.76 08/02/2020 1:06 PM CDT documented in this encounter Progress Notes Laura Tellez MD - 08/02/2020 1:20 PM CDT Estab Patient Visit Subjective Patient ID: Dasha Wellington is a 25 y.o. male. Chief Complaint Patient presents with ??? Sore Throat x 5 days HPI Patient is a 25-year-old male with seasonal allergies who presents for acute illness of 5 days duration. He has had sore throat without fever and some painful swallowing accompanied by some headache, fatigue and one episode of vomiting. He is requesting a note for work. He has received COVID-19 vaccine and is tested regularly at work and been negative. He has had no ill contacts. He reports that yesterday he had an episode where he had racing heart for 45 minutes without chest pain or shortness of breath and it went away on its own. Is also noticed that he has episodes where he has feelings of not feeling well that improved with eating and he is wondering about diabetes since he has a strong family history of diabetes. He requests a refill of his allergy medications. Current Outpatient Medications on File Prior to Visit Medication Sig Dispense Refill ??? olopatadine (PATANOL) 0.1 % ophthalmic solution Administer 1 drop into affected eye(s) 2 (two) times a day if needed for allergies 5 mL 5 ??? triamcinolone (KENALOG) 0.5 % ointment Apply topically 2 (two) times a day hands 30 g 3 ??? fluticasone (FLONASE) 50 MCG/ACT nasal spray Administer 2 sprays into each nostril 1 (one) time each day (Patient not taking: Reported on 04/13/2020) 16 g 5 ??? levocetirizine (Xyzal) 5 MG tablet Take 1 tablet (5 mg total) by mouth 1 (one) time each day in the evening (Patient not taking: Reported on 04/13/2020) 30 tablet 5 No current facility-administered medications on file prior to visit. Environmental and Pollen extract The following portions of the patient's chart were reviewed in this encounter and updated as appropriate: Tobacco Allergies Meds Med Hx Surg Hx Fam Hx Soc Hx Review of Systems See HPI. Objective Physical Exam Blood pressure 118/70, pulse 67, temperature 36.5 ??C (97.7 ??F), temperature source Temporal, resp.rate 14, height 1.788 m (5' 10.39), weight 127 kg (280 lb 3.3 oz), SpO2 96 %. Generally, not in acute distress. Pupils equal round reactive to light, conjunctive are clear. Nares without significant drainage. Oropharynx with mild erythema but no exudate. Uvula is midline. Moist mucous membranes. No tenderness to palpation over sinuses. Tympanic membranes without erythema, intact light reflex. External canals are normal. Neck is supple without lymphadenopathy. Heart regular rate and rhythm without murmurs rubs or gallops. Lungs clear to auscultation bilaterally. Skin without rash. Rapid strep test is negative. Assessment/Plan Diagnoses and all orders for this visit: Sore throat - Rapid strep screen Seasonal allergic rhinitis due to pollen - fluticasone (FLONASE) 50 MCG/ACT nasal spray; Administer 2 sprays into each nostril 1 (one) time each day - levocetirizine (Xyzal) 5 MG tablet; Take 1 tablet (5 mg total) by mouth 1 (one) time each day in the evening Lipid screening - Lipid panel; Future Racing heart beat - CBC Branch Off w/Diff; Future - Basic metabolic panel; Future Diabetes mellitus screening - Basic metabolic panel; Future Suspect his symptoms are allergy related. I refilled his allergy medications. Discussed screening tests which she will return fasting to complete. This dictation was created with voice recognition software and therefore may contain errors that went unnoticed. There are no Patient Instructions on file for this visit. documented in this encounter Plan of Treatment Not on filedocumented as of this encounter Procedures Procedure Name Priority Date/Time Associated Diagnosis Comme nts RAPID GROUP A STREP Routine 08/02/2020 1:14 PM Sore throat Re sults for this SCREEN CDT procedure are i n the results section. STREP A CULTURE, Routine 08/02/2020 1:14 PM Sore throat Resul ts for this THROAT CDT procedure are i n the results section. documented in this encounter Results Strep A culture, throat (08/02/2020 1:14 PM CDT) [facility] gist Method Time Signature Throat Strep Negative for 08/04/2020 TOM A Culture Group A 6:25 AM CDT MEDICAL CENTER Strep at 48 LABORATORY hrs. Specimen Anatomical Collection Method Collection Time Receive d Time (Source) Location / / Volume Laterality Group A Strep 08/02/2020 1:14 PM 08/04/19 21 (Throat) CDT 12:59 PM CDT Comment: GROUP A THROAT CULTURE Laura Tellez MD LAB MICROBIOLOGY - GENERAL O RDERABLES Performing Organization Address City/State/ZIP Code Phon e Number [facility] [address] [place] [id number] Rapid strep screen (08/02/2020 1:14 PM CDT) P athologist Signature Strep A Ag, NEGATIVE Negative [facility]02[facility]54 PM [facility] LAB Specimen Anatomical Collection Method Collection Time Receive d Time (Source) Location / / Volume Laterality Swab (Throat 08/02/2020 1:14 PM 1:53 Swab) CDT PM CDT Laura Tellez MD LAB BODY FLUIDS AND STOOLS O RDERABLES Performing Organization Address City/State/ZIP Code Phon e Number [facility] [address] [facility] [place] [address] [place] [address] documented in this encounter Visit Diagnoses Diagnosis Sore throat - Primary Acute pharyngitis Seasonal allergic rhinitis due to pollen Lipid screening Screening for lipoid disorders Racing heart beat Unspecified tachycardia Diabetes mellitus screening Screening for diabetes mellitus documented in this encounter Care Teams Shoe Shanker Relationship Specialty Start Date End Date Laura Tellez MD PCP - General Family Medicine 08/02/20 documented as of this encounter
--- OUTSIDE RECORDS SUMMARY | 2022-03-22 23:37 | XMS_ITS | Encounter Summary ---
:1995 Author Organization [facility] Address [address] [place] [address] Care Team Providers Name Role Phone Laura Tellez MD Primary Care Provider Unavailable Encounter Details Date Type Department Care Team Description 03/14/2021 Lab [facility] Encounter for screening 102 [facility] lab oratory testing for [address] COVID-19 virus [place], [place] [id number] Social History Tobacco Use Types Packs/Day Years [...] encounter Procedures Procedure Name Priority Date/Time Associated Comments Diagnosis SARS CORONAVIRUS 2 Routine 03/14/2021 4:55 PM Encounter for Re sults for this RNA DETECTION, V MOTION PICTURE CRITIC screening procedure a re in laboratory testing the resul ts for COVID-19 virus section. documented in this encounter Results SARS Coronavirus 2 RNA detection, v (03/14/2021 4:55 PM MOTION PICTURE CRITIC) [facility] Method Time Signature SARS Covid Nasopharyngeal 03/15/2021 [facility] specimen 4:18 AM MOTION PICTURE CRITIC LABORATORIES source SARS CoV2 Undetected Undetected 03/15/2021 [facility] RNA 4:18 AM MOTION PICTURE CRITIC LABORATORIES Comment: SARS-CoV-2 RNA absent. This result does not rule out COVID-19 in the patient, as the sensitiv ity of the test depends on the timing of the specimen co llection and the quality of the specimen. Result should b e correlated with patient's history and clinical presentat ion. Method - 03/15/2021 4:18 AM MOTION PICTURE CRITIC [facility] DICAL LABORATORIES Comment: LETICIA- This PCR test uses the leticia SARS -CoV-2 assay ([employer] and is perform ed on the leticia 6800 System. It has received Emergency U se Authorization (EUA) by the U.S. Food and Drug Administ akash. Performance characteristics were verified by [facility] inic in a manner consistent with CLIA requirements. Fact sheets for this Emergency Use Autho rization (EUA) can be found at the following links: https://www.fda.gov/media/088189/downloa d for Healthcare Providers https://www.fda.gov/media/225707/downloa d for Patients Test Performed by: [place] [address] Combatant Diver Qualified: Cade Cespedes M.D. Ph. D.; CLIA# [id number] Specimen Anatomical Collection Method Collection Time Receive d Time (Source) Location / / Volume Laterality Swab 03/14/2021 4:55 PM 4:55 (Nasopharyngeal) MOTION PICTURE CRITIC PM MOTION PICTURE CRITIC Pastor Dailey DNP, DATA MIGRATION LEAD, NEEDLE PROCESS FELT GOODS SUPERVISOR LAB MOLECULAR DIAGNOSTI CS ORDERABLES Performing Organization Address City/State/ZIP Code Phon e Number [facility] see result attachment for specific address documented in this encounter Visit Diagnoses Diagnosis Encounter for screening laboratory testi ng for COVID-19 virus documented in this encounter Additional Health Concerns Infection Onset Date Last Indicated Resolved Time COVID-19 Rule Out 03/14/2021 03/14/2021 03/15/2021 4:1 9 AM MOTION PICTURE CRITIC documented as of this encounter Care Teams Craps Manager Relationship Specialty Start Date End Date Laura Tellez MD PCP - General Family Medicine 08/02/20 documented as of this encounter
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
--- OUTSIDE RECORDS SUMMARY | 2022-03-22 23:37 | XMS_ITS | Encounter Summary ---
:1995 Author Organization [facility] Address [address] [place] [address] Care Team Providers Name Role Phone Laura Tellez MD Primary Care Provider Unavailable Encounter Details Date Type Department Care Team Description 03/21/2021 Lab [facility] Encounter for screening 102 [facility] lab oratory testing for [address] COVID-19 virus [place], [place] [id number] Social History Tobacco Use Types Packs/Day Years [...] Associated Comments Diagnosis SARS CORONAVIRUS 2 Routine 03/21/2021 10:42 Encounter for Resu lts for this RNA DETECTION, V AM AEROGRAPHER screening procedure a re in laboratory testing the resul ts for COVID-19 virus section. documented in this encounter Results SARS Coronavirus 2 RNA detection, v (03/21/2021 10:42 AM AEROGRAPHER) [facility] Method Time Signature SARS Covid Nasopharyngeal 03/22/2021 [facility] specimen 12:39 AM LABORATORIES source AEROGRAPHER SARS CoV2 Undetected Undetected 03/22/2021 [facility] RNA 12:39 AM LABORATORIES AEROGRAPHER Comment: SARS-CoV-2 RNA absent. This result does not rule out COVID-19 in the patient, as the sensitiv ity of the test depends on the timing of the specimen co llection and the quality of the specimen. Result should b e correlated with patient's history and clinical presentat ion. Method - 03/22/2021 12:39 AM AEROGRAPHER [facility] Comment: LETICIA- This PCR test uses the leticia SARS -CoV-2 assay ([employer] and is perform ed on the leticia cloud[employer]IQ0 System. It has received Emergency U se Authorization (EUA) by the U.S. Food and Drug Administ akash. Performance characteristics were verified by [facility] inic in a manner consistent with CLIA requirements. Fact sheets for this Emergency Use Autho rization (EUA) can be found at the following links: https://www.fda.gov/media/455812/downloa d for Healthcare Providers https://www.fda.gov/media/181885/downloa d for Patients Test Performed by: [place] [id number] Patent Attorney: Cade Cespedes M.D. Ph. D.; CLIA# [id number] Specimen Anatomical Collection Method Collection Time Receive d Time (Source) Location / / Volume Laterality Swab 03/21/2021 10:42 03/21/2021 (Nasopharyngeal) AM AEROGRAPHER 10:42 AM CS T Kacie Reyes APRN, DEV LAB MOLECULAR DIAGNOSTICS O RDERABLES Performing Organization Address City/State/ZIP Code Phon e Number [facility] see result attachment for specific address documented in this encounter Visit Diagnoses Diagnosis Encounter for screening laboratory testi ng for COVID-19 virus documented in this encounter Additional Health Concerns Infection Onset Date Last Indicated Resolved Time COVID-19 Rule Out 03/21/2021 03/21/2021 03/22/2021 12: 39 AM AEROGRAPHER documented as of this encounter Care Teams Optometric Technologist Relationship Specialty Start Date End Date Laura Tellez MD PCP - General Family Medicine 08/02/20 documented as of this encounter
--- OUTSIDE RECORDS SUMMARY | 2022-03-22 23:37 | XMS_ITS | Encounter Summary ---
:1995 Author Organization [facility] Address [address] [place] [address] Care Team Providers Name Role Phone Marilou Ruiz PA-C Primary Care Provider Unavailable Encounter Details Date Type Department Care Team Description 08/26/2019 Telephone [place] Marilou Ruiz PA-C [address] [place] [address] [address] [place], [place] [address] Social History Tobacco Use Types Packs/Day Years [...] this encounter Miscellaneous Notes Telephone Encounter - Lesvia Viera RN - 08/27/2019 11:25 AM CDT Patient called and informed letter was faxed. Telephone Encounter - Lesvia Viera RN - 08/27/2019 11:23 AM CDT Letter faxed per Marilou Ruiz request to [facility] fax [phone] Telephone Encounter - Acosta Ashford - 08/27/2019 10:39 AM CDT Patient calls in with the following information for his work note to be faxed: Employer: [employer] Telephone Encounter - Marilou Ruiz PA-C - 08/26/2019 5:14 PM CDT Called patient. Work not provided per patient request stating that his COVID-19 testing was negative. Work note also included CDC recommendations regarding return to work. The work note was printed, signed, and is sitting on my in basket on my desk. I will not be in the office tomorrow. Patient did not know where he wanted the letter to be faxed. He will call us back tomorrow with a fax number. Telephone Encounter - Jamilah Mejia RN - 08/26/2019 3:46 PM CDT Patient's COVID swab came back negative, he continues to have slight cough, sore throat, body aches and headache. He has been advised he needs to be fever free for 72 hours, and other symptoms improvedand at least 7 days have passed since symptoms first started. Patient will need note to return to work at [employer]. Are you able to provide note to employer? Telephone Encounter - Marylou Gardner - 08/26/2019 2:29 PM CDT Dasha needs an work release stating his COVID-19 test was negative and can return to work. Pleasecall Dasha can pick this up. documented in this encounter Plan of Treatment Not on filedocumented as of this encounter Visit Diagnoses Not on filedocumented in this encounter Additional Health Concerns Infection Onset Date Last Indicated Resolved Time COVID-19 Rule Out 08/25/2019 08/25/2019 08/26/2019 10: 57 AM CDT documented as of this encounter Care Teams Hockey Player Relationship Specialty Start Date End Date Marilou Ruiz PA-C PCP - General Family Medicine 08/19/1906/21 documented as of this encounter
--- OUTSIDE RECORDS SUMMARY | 2022-03-22 23:37 | XMS_ITS | Encounter Summary ---
:1995 Author Organization [facility] Address [address] [place] [address] Care Team Providers Name Role Phone Marilou Ruiz PA-C Primary Care Provider Unavailable Encounter Details Date Type Department Care Team Description 04/27/2020 Lab [facility] Encounter for screening for [address] COV ID-19 [address] [place] [phone] Social History Tobacco Use Types Packs/Day Years [...] documented as of this encounter Progress Notes Gael Stone PA-C - 04/27/2020 7:40 AM CST Your COVID-19 results are NEGATIVE. If applicable, always contact your employer or school district for specific instructions regarding your return to work or school. If you have symptoms, we recommend you stay home and monitor your symptoms. We recommend that you donot return to work/school/daycare until your fever is less than or equal to 100.4 for at least 24 hours (without taking medications to lower temperature). Contact your healthcare provider if your symptoms worsen. If you do not have symptoms, and were tested because of an exposure to a positive COVID person, we recommend quarantine from public places, work, or school for 14 days from exposure, or as directed by your employer or school district guidelines. If symptoms develop during quarantine, contact your emplo frances or school district and also your healthcare provider. If you do not have symptoms and have no known exposure to a positive COVID person, we recommend you may resume normal activities. Contact your employer or school district for any other specific instructions. If you do not have symptoms and are or have an upcoming surgery, we recommend that you please avoid close contact with people who are sick, even inside your home. Please put distance between yourself and others outside your home. These recommendations will help minimize your exposure to COVID-19 prior to your hospitalization. CONSULTANT documented in this encounter Plan of Treatment Not on filedocumented as of this encounter Procedures Procedure Name Priority Date/Time Associated Comments Diagnosis SARS CORONAVIRUS 2 Routine 04/27/2020 6:36 AM Encounter for Re sults for this RNA DETECTION, V UNIX CONSULTANT screening for procedure are in COVID-19 the results section. documented in this encounter Results SARS Coronavirus 2 RNA detection, v (04/27/2020 6:36 AM UNIX CONSULTANT) [facility] Method Time Signature SARS Covid Nasopharyngeal 04/27/2020 [facility] specimen 6:09 PM [facility] source Patient Race White 04/27/2020 [facility] 6:09 PM [facility] Patient Unknown 04/27/2020 [facility] Ethnicity 6:09 PM [facility] SARS CoV2 Undetected Undetected 04/27/2020 [facility] RNA 6:09 PM [facility] Comment: SARS-CoV-2 RNA absent. This result does not rule out COVID-19 in the patient, as the sensitiv ity of the test depends on the timing of the specimen co llection and the quality of the specimen. Result should b e correlated with patient's history and clinical presentat ion. Method - 04/27/2020 6:09 PM UNIX CONSULTANT [facility] Comment: THFSH- This PCR test uses the TaqPath CO VID-19 Combo Kit ([employer] Serge.) and is perform ed on the Propel[employer].com magnetic particle proces sor and Applied FlxOne Fast Dx Real-Time PCR Sy stem. It has received Emergency Use Authorization (EU A) by the U.S. Food and Drug Administration. Performance caity racteristics were verified by [facility] in a manner cons istent with CLIA requirements. Fact sheets for this Emergency Use Autho rization (EUA) can be found at the following links: https://www.fda.gov/media/365543/downloa d for Healthcare Providers https://www.fda.gov/media/376866/downloa d for Patients Test Performed by: [place] [id number] Strategy Lead: Cade Cespedes M.D. Ph. D.; CLIA# [id number] Specimen Anatomical Collection Method Collection Time Receive d Time (Source) Location / / Volume Laterality Swab 04/27/2020 6:36 AM 7:45 (Nasopharyngeal) UNIX CONSULTANT AM UNIX CONSULTANT Gayle Rodgers APRN, DAIRY FARMWORKER LAB MOLECULAR DIAGNOSTICS OR DERABLES Performing Organization Address City/State/ZIP Code Phon e Number [facility] see result attachment for specific address documented in this encounter Visit Diagnoses Diagnosis Encounter for screening for COVID-19 documented in this encounter Additional Health Concerns Infection Onset Date Last Indicated Resolved Time COVID-19 Rule Out 04/27/2020 04/27/2020 04/27/2020 6:0 9 PM UNIX CONSULTANT documented as of this encounter Care Teams Web Operations Administrator Relationship Specialty Start Date End Date Marilou Ruiz PA-C PCP - General Family Medicine 08/19/1906/21 documented as of this encounter
--- OUTSIDE RECORDS SUMMARY | 2022-03-22 23:37 | XMS_ITS | Encounter Summary ---
:[address] [facility] Address [address] [place] [address] Care Team Providers Name Role Phone Marilou Ruiz PA-C Primary Care Provider Unavailable Reason for Referral Consultation (Urgent) - Closed Specialty Diagnoses / Procedures Referred By Contact Refer red To Contact Ophthalmology Diagnoses Other conjunctivitis of both eyes Laura Tellez MD [address] [place] [id number] Referral ID Status Reason Start Date Expiration Date Visits V isits Requested Authorized [id number] Closed Specialty 10/06/2019 04/03/2020 1 1 Services Required Scheduling Instructions Please call the Ophthalmology Wet Machine Tender desk at [phone] to schedule an appointment. Reason for Visit Reason Comments bilateral eye redness and pain 11/30 Encounter Details Date Type Department Care Team Description 10/06/2019 Office Visit [facility] Other conjunctivitis of [address] MD Earline both eyes (Primary Dx) [place] [address] Social History Tobacco Use Types Packs/Day Years [...] Sign Reading Time Taken Comments Blood Pressure 128/70 10/06/2019 3:17 PM CDT Pulse 68 10/06/2019 3:17 PM CDT Temperature 37.2 ??C (98.9 ??F) 10/06/2019 3:17 PM CDT Respiratory Rate 18 10/06/2019 3:17 PM CDT Oxygen Saturation 96% 10/06/2019 3:17 PM CDT Inhaled Oxygen Concentration - - Weight 125 kg (275 lb 12.7 oz) 10/06/2019 3:17 PM CDT Height 179.3 cm (5' 10.59) 10/06/2019 3:17 PM CDT Body Mass Index 38.91 10/06/2019 3:17 PM CDT documented in this encounter Patient Instructions Patient InstructionsFrleticia Tellez MD - 10/06/2019 3:20 PM CDT I am going to start you on antibiotic eye drop and refer you to eye doctor for further evaluation. documented in this encounter Progress Notes Laura Tellez MD - 10/06/2019 3:20 PM CDT Estab Patient Visit Subjective Patient ID: Dasha Wellington is a 24 y.o. male. Chief Complaint Patient presents with ??? bilateral eye redness and pain 8/10 HPI Patient is a 24-year-old male with seasonal allergies who presents for follow-up after being seen 6 days ago, prescribed Patanol, oral antihistamine and steroid nasal spray. He says that the eyedrops helped him briefly but then his burning has been worse over the last 3 days. He has had a hard time not itching his eyes and he says over the weekend they were mattered shut. He describes no pain but there is burning with itching. He says the nasal spray has been helpful for his no symptoms which have largely resolved. He denies any foreign body in the eye, does not wear contact lenses and denies change in his vision. Current Outpatient Medications on File Prior to Visit Medication Sig Dispense Refill ??? fluticasone (FLONASE) 50 MCG/ACT nasal spray Administer 2 sprays into each nostril 1 (one) time each day 16 g 5 ??? levocetirizine (Xyzal) 5 MG tablet Take 1 tablet (5 mg total) by mouth 1 (one) time each day in the evening 30 tablet 5 ??? olopatadine (PATANOL) 0.1 % ophthalmic solution Administer 1 drop into affected eye(s) 2 (two) times a day if needed for allergies 5 mL 5 No current facility-administered medications on file prior to visit. Environmental and Pollen extract The following portions of the patient's chart were reviewed in this encounter and updated as appropriate: Tobacco Allergies Meds Review of Systems See HPI. Objective Physical Exam Blood pressure 128/70, pulse 68, temperature 37.2 ??C (98.9 ??F), temperature source Temporal, resp.rate 18, height 1.793 m (5' 10.59), weight 125 kg (275 lb 12.7 oz), SpO2 96 %. Generally patient is well-appearing not in acute distress. Pupils equal round reactive to light, conjunctive are markedly injected bilaterally. Assessment/Plan Diagnoses and all orders for this visit: Other conjunctivitis of both eyes - ofloxacin (OCUFLOX) 0.3 % ophthalmic solution; Administer 1 drop into both eyes 4 (four) times a day for 7 days - Ambulatory referral to Ophthalmology Because of interval worsening and the mattering over the weekend, I am going to start him on an antibiotic eyedrop and will refer him to ophthalmology. He was given a work note for tonight and tomorrownight. This dictation was created with voice recognition software and therefore may contain errors that went unnoticed. Patient Instructions I am going to start you on antibiotic eye drop and refer you to eye doctor for further evaluation. documented in this encounter Plan of Treatment Scheduled Referrals Name Type Priority Associated Diagnoses Order [facility] Ambulatory referral Outpatient Routine Other conjunctivitis Ordered: to Ophthalmology Referral of both eyes 10/06/2019 documented as of this encounter Visit Diagnoses Diagnosis Other conjunctivitis of both eyes - Prim rambo documented in this encounter Care Teams Table Cover Folder Relationship Specialty Start Date End Date Marilou Ruiz PA-C PCP - General Family Medicine 08/19/1906/21 documented as of this encounter
--- OUTSIDE RECORDS SUMMARY | 2022-03-22 23:37 | XMS_ITS | Encounter Summary ---
:1995 Author Organization [facility] Address [address] [place] [address] Care Team Providers Name Role Phone Marilou Ruiz PA-C Primary Care Provider Unavailable Encounter Details Date Type Department Care Team Description 04/14/2020 Orders Only [facility] Yesy Frances Encounter for [address] [facility] L, DNP, AP RN, HYDROGRAPHIC ENGINEER preoperative screening [address] [facility] laboratory testing for [address] COVID-19 virus [phone] [place], [place] (Primary Dx ) [phone] (Wo rk) Social History Tobacco Use Types [...] this encounter Visit Diagnoses Diagnosis Encounter for preoperative screening lab oratory testing for COVID-19 virus - Primary documented in this encounter Care Teams Manager Of Case Management Relationship Specialty Start Date End Date Marilou Ruiz PA-C PCP - General Family Medicine 08/19/1906/21 documented as of this encounter
--- OUTSIDE RECORDS SUMMARY | 2022-03-22 23:37 | XMS_ITS | Encounter Summary ---
:1995 Author Organization [facility] Address [address] [place] [address] Care Team Providers Name Role Phone Laura Tellez MD Primary Care Provider Unavailable Reason for Visit Reason Comments URI Encounter Details Date Type Department Care Team Description 03/16/2021 Office Visit [place] Laura Tellez Viral [address] Alli Patten MD respiratory infection [place], [place] [address] (Primary Dx) [phone] Social History Tobacco Use Types Packs/Day Years [...] Sign Reading Time Taken Comments Blood Pressure 122/80 03/16/2021 1:12 PM MANUFACTURING HELPER Pulse 98 03/16/2021 1:12 PM MANUFACTURING HELPER Temperature 36.6 ??C (97.9 ??F) 03/16/2021 1:12 PM MANUFACTURING HELPER Respiratory Rate 14 03/16/2021 1:12 PM MANUFACTURING HELPER Oxygen Saturation 97% 03/16/2021 1:12 PM MANUFACTURING HELPER Inhaled Oxygen Concentration - - Weight 130 kg (285 lb 14.4 oz) 03/16/2021 1:12 PM MANUFACTURING HELPER Height 177.8 cm (5' 10) 03/16/2021 1:12 PM MANUFACTURING HELPER Body Mass Index 41.02 03/16/2021 1:12 PM MANUFACTURING HELPER documented in this encounter Patient Instructions Patient InstructionsFrances Earline Tellez MD - 03/16/2021 1:20 PM CST I recommend that you repeat testing for Covid 19. It is possible that your test on Sunday March 14, 2021 was a false negative . I recommend that you stay out of work until testing complete and repeat test is negative. FACTURING HELPER documented in this encounter Progress Notes Laura Tellez MD - 03/16/2021 1:20 PM CST Estab Patient Visit Subjective Patient ID: Dasha Wellington is a 25 y.o. male. Chief Complaint Patient presents with ??? URI HPI Patient is a 25-year-old male who presents with respiratory symptoms and Covid positive contact. Hiswife tested positive for Covid 6 days ago. He was tested negative 7 days ago and again tested negative 2 days ago. His symptoms started 5 days ago. He was vaccinated against COVID-19 with J&J vaccine over 6 months ago. He reports loss of taste but not smell starting 5 days ago followed by sore throat, cough, chills, aches, fever, cough and some shortness of breath with exertion. 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 Current Outpatient Medications on File Prior to Visit Medication Sig Dispense Refill ??? clobetasol (Temovate) 0.05 % cream Apply topically 2 (two) times a day 60 g 0 ??? triamcinolone (KENALOG) 0.5 % ointment Apply [...] See HPI. Objective Physical Exam Blood pressure 122/80, pulse 98, temperature 36.6 ??C (97.9 ??F), resp. rate 14, height 1.778 m (5' 10), weight 130 kg (285 lb 14.4 oz), SpO2 97 %. Generally, not in acute distress. Pupils equal round reactive to light, conjunctive are clear. Nares without significant drainage. Oropharynx with erythema but no exudate. Uvula is midline. Moist mucous membranes. Tympanic membranes without erythema, intact light reflex. External canals are normal. Neck is supple without lymphadenopathy. Heart regular rate and rhythm without murmurs rubs or gallops. Lungs clear to auscultation bilaterally. No increased work of breathing. Skin without rash. Assessment/Plan Diagnoses and all orders for this visit: Viral upper respiratory infection Patient's exam is reassuring. He is afebrile with normal vital signs. He has had exposure to COVID-19 with close exposure to his whom it was positive last week. I think it is possible that test onMarch 14 was a false negative so recommend retesting to confirm negative before going back to work. This dictation was created with voice recognition software and therefore may contain errors that went unnoticed. Patient Instructions I recommend that you repeat testing for Covid 19. It is possible that your test on Sunday March 14, 2021 was a false negative . I recommend that you stay out of work until testing complete and repeat test is negative. FACTURING HELPER documented in this encounter Plan of Treatment Not on filedocumented as of this encounter Visit Diagnoses Diagnosis Viral upper respiratory infection - Prim rambo Acute upper respiratory infections of un specified site documented in this encounter Care Teams Junior Network Engineer Relationship Specialty Start Date End Date Laura Tellez MD PCP - General Family Medicine 08/02/20 documented as of this encounter
--- OUTSIDE RECORDS SUMMARY | 2022-03-22 23:37 | XMS_ITS | Encounter Summary ---
:1995 Author Organization [facility] Address [address] [place] [address] Care Team Providers Name Role Phone Laura Tellez MD Primary Care Provider Unavailable Reason for Referral Consultation (Routine) - Closed Specialty Diagnoses / Procedures Referred By Contact Refer red To Contact Dermatology Diagnoses Hand dermatitis Laura Tellez MD [address] [place] [address] Referral ID Status Reason Start Date Expiration Date Visits V isits Requested Authorized [id number] Closed Specialty 08/18/2020 02/14/2021 1 1 Services Required Scheduling Instructions Please call the Dermatology Boat Puller [facility] at [phone] when complete to schedule an appointment. Reason for Visit Reason Comments skin irritation right hand, some left hand pt would li ke referral to dermatology Encounter Details Date Type Department Care Team Description 08/18/2020 Office Visit Laura Tyler Hand dermatitis [address] [facility] MD Earline (Primary Dx) [place] [address] Social History Tobacco Use Types Packs/Day Years [...] Sign Reading Time Taken Comments Blood Pressure 116/60 08/18/2020 1:09 PM CDT Pulse 76 08/18/2020 1:09 PM CDT Temperature 36.9 ??C (98.5 ??F) 08/18/2020 1:09 PM CDT Respiratory Rate 16 08/18/2020 1:09 PM CDT Oxygen Saturation 96% 08/18/2020 1:09 PM CDT Inhaled Oxygen Concentration - - Weight 125 kg (275 lb 9.2 oz) 08/18/2020 1:09 PM CDT Height 177.7 cm (5' 9.96) 08/18/2020 1:09 PM CDT Body Mass Index 39.58 08/18/2020 1:09 PM CDT documented in this encounter Patient Instructions Patient InstructionsFrances Earline Tellez MD - 08/18/2020 1:20 PM CDT Referral to dermatology. Return for fasting labs. documented in this encounter Progress Notes Laura Tellez MD - 08/18/2020 1:20 PM CDT Estab Patient Visit Subjective Patient ID: Dasha Wellington is a 25 y.o. male. Chief Complaint Patient presents with ??? skin irritation right hand, some left hand pt would like referral to dermatology HPI Patient is a 25-year-old male who presents for ongoing hand dermatitis for which he had been seen byme previously. He has had intermittent cracking and fissuring of the skin of both hands more prominent on the right hand since about 2011. He says he washes his hands a lot and does apply Goldbond to moisturize his hands and that seems to help some. He does have to wear gloves intermittently at his job. He has been applying triamcinolone ointment which has not helped with the fissuring but says that the fingernail that had previously been missing did grow back. He was happy about that. He recounts an injury where the hand and skin including the nails of the right hand were injured and this seemed to coincide with onset of the intermittent difficulties he has had with his skin particularly on that hand. Current Outpatient Medications on File Prior to [...] the evening allergies) 30 tablet 5 ??? olopatadine (PATANOL) 0.1 [...] Meds Med Hx Surg Hx Fam Hx Review of Systems See HPI. Objective Physical Exam Blood pressure 116/60, pulse 76, temperature 36.9 ??C (98.5 ??F), temperature source Temporal, resp.rate 16, height 1.777 m (5' 9.96), weight 125 kg (275 lb 9.2 oz), SpO2 96 %. Generally he is well-appearing nonacute distress. Patient has fissuring and cracking of the skin of both hands most notably on the right hand including the digits. There is drying and flaking of the skin as well. Assessment/Plan Diagnoses and all orders for this visit: Hand dermatitis - Ambulatory referral to Dermatology There is not a specific precipitating factor aside that he does wash his hands quite a bit. He has had this intermittently for several years. Suspect it may be eczema. Unfortunately he did not have good response with the triamcinolone ointment. Discussed trying a more potent steroid. It has been difficulty to treat because the ointment does not easily stay on his hands and he does wash his hands and wear gloves frequently at his job. Patient specifically requested a referral to dermatology so this was placed. This dictation was created with voice recognition software and therefore may contain errors that went unnoticed. Patient Instructions Referral to dermatology. Return for fasting labs. documented in this encounter Plan of Treatment Scheduled Referrals Name Type Priority Associated Order Schedule Diagnoses Ambulatory referral Outpatient Referral Routine Hand dermatiti s Ordered: to Dermatology 08/18/2020 documented as of this encounter Visit Diagnoses Diagnosis Hand dermatitis - Primary Contact dermatitis and other eczema, due to unspecified cause documented in this encounter Care Teams Motion Picture Set Worker Relationship Specialty Start Date End Date Laura Tellez MD PCP - General Family Medicine 08/02/20 documented as of this encounter
--- OUTSIDE RECORDS SUMMARY | 2022-03-22 23:37 | XMS_ITS | Encounter Summary ---
:1995 Author Organization [facility] Address [address] [place] [address] Care Team Providers Name Role Phone Laura Tellez MD Primary Care Provider Unavailable Encounter Details Date Type Department Care Team Description 03/10/[address] [facility] Encounter for screening [address] [facility] lab oratory testing for [address] COVID-19 virus [place], [place] [id number] Social History Tobacco Use Types Packs/Day Years [...] Associated Comments Diagnosis SARS CORONAVIRUS 2 Routine 03/10/2021 1:55 PM Encounter for Re sults for this RNA DETECTION, V [facility] screening procedure a re in laboratory testing the resul ts for COVID-19 virus section. documented in this encounter Results SARS Coronavirus 2 RNA detection, v (03/10/2021 1:55 PM [facility]) [facility] Method Time Signature SARS Covid Nasopharyngeal 03/10/2021 [facility] specimen 9:12 PM [facility] source SARS CoV2 Undetected Undetected 03/10/2021 [facility] RNA 9:12 PM [facility] Comment: SARS-CoV-2 RNA absent. This result does not rule out COVID-19 in the patient, as the sensitiv ity of the test depends on the timing of the specimen co llection and the quality of the specimen. Result should b e correlated with patient's history and clinical presentat ion. Method - 03/10/2021 9:12 PM [facility] Comment: LETICIA- This PCR test uses the leticia SARS -CoV-2 assay ([employer] and is perform ed on the leticia 6800 System. It has received Emergency U se Authorization (EUA) by the U.S. Food and Drug Administ akash. Performance characteristics were verified by [facility] inic in a manner consistent with CLIA requirements. Fact sheets for this Emergency Use Autho rization (EUA) can be found at the following links: https://www.fda.gov/media/971036/downloa d for Healthcare Providers https://www.fda.gov/media/736603/downloa d for Patients Test Performed by: [place] [id number] Operations Specialist: Cade Cespedes M.D. Ph. D.; CLIA# [id number] Specimen Anatomical Collection Method Collection Time Receive d Time (Source) Location / / Volume Laterality Swab 03/10/2021 1:55 PM 1:55 (Nasopharyngeal) [facility] PM [facility] Roxana Hahn APRN, CNP LAB MOLECULAR DIAGNOSTICS OR DERABLES Performing Organization Address City/State/ZIP Code Phon e Number [facility] see result attachment for specific address documented in this encounter Visit Diagnoses Diagnosis Encounter for screening laboratory testi ng for COVID-19 virus documented in this encounter Additional Health Concerns Infection Onset Date Last Indicated Resolved Time COVID-19 Rule Out 03/10/2021 03/10/2021 03/10/2021 9:1 2 PM [facility] documented as of this encounter Care Teams Associate Professor Of Communication Relationship Specialty Start Date End Date Laura Tellez MD PCP - General Family Medicine 08/02/20 documented as of this encounter
--- OUTSIDE RECORDS SUMMARY | 2022-03-22 23:37 | XMS_ITS | Encounter Summary ---
:1995 Author Organization [facility] Address [address] [place] [address] Care Team Providers Name Role Phone Marilou Ruiz PA-C Primary Care Provider Unavailable Encounter Details Date Type Department Care Team Description 04/22/2020 Orders Only [facility] Olena Winters, Encounter for [address] ELIGIBILITY CLERK, STARCH CRAB preope rative screening [address] [place] [address] COVID-19 virus (Primary [phone] Dx) Social History Tobacco Use Types Packs/Day [...] Primary documented in this encounter Care Teams Residential Real Estate Appraiser Relationship Specialty Start Date End Date Joseph, Marilou R, PA-C PCP - General Family Medicine 08/19/1906/21 documented as of this encounter
--- OUTSIDE RECORDS SUMMARY | 2022-03-22 23:37 | XMS_ITS | Encounter Summary ---
:1995 Author Organization [facility] Address [address] [place] [address] Care Team Providers Name Role Phone Marilou Ruiz PA-C Primary Care Provider Unavailable Reason for Visit Reason Onset Date Comments Follow-up 04/17/2020 Encounter Details Date Type Department Care Team Description 04/17/2020 Telephone [facility] Galina Valdez PA-C Follow-up [address] [facility] [address] [facility] [address] [place] [address] [place] [address] [phone] (Wo rk) Social History Tobacco Use Types [...] this encounter Miscellaneous Notes Telephone Encounter - Pennie Madrigal RN - 04/17/2020 11:34 AM INJECTION MOLDING MACHINE SETTER Called patient as he hadn't shown up for his preop COVID Testing. Patient states that he needs to reschedule his surgery due to closing on his house next week. Patient instructed to call pre-op nursingon Sunday morning to discuss rescheduling of his surgery. CTION MOLDING MACHINE SETTER documented in this encounter Plan of Treatment Not on filedocumented as of this encounter Visit Diagnoses Not on filedocumented in this encounter Additional Health Concerns Infection Onset Date Last Indicated Resolved Time COVID-19 Rule Out 04/17/2020 04/17/2020 04/18/2020 9:3 8 AM INJECTION MOLDING MACHINE SETTER COVID-19 Rule Out 04/27/2020 04/27/2020 04/27/2020 6:0 9 PM INJECTION MOLDING MACHINE SETTER documented as of this encounter Care Teams Deli Manager Relationship Specialty Start Date End Date Marilou Ruiz PA-C PCP - General Family Medicine 08/19/1906/21 documented as of this encounter
--- OUTSIDE RECORDS SUMMARY | 2022-03-22 23:37 | XMS_ITS | Encounter Summary ---
:1995 Author Organization [facility] Address [address] [place] [address] Care Team Providers Name Role Phone Marilou Ruiz PA-C Primary Care Provider Unavailable Reason for Visit Reason Comments allergy symptoms: stuffy nose, eyes past 3 days, sx man ve been worse with windy reddened, eye swelling weather Encounter Details Date Type Department Care Team Description 09/30/2019 Office Visit [place] Laura Tellez Seasonal allergic conjunctiv itis (Primary Dx); [address] MD Earline Seasonal [place] [address] Social History Tobacco Use Types Packs/Day Years [...] Sign Reading Time Taken Comments Blood Pressure 126/72 09/30/2019 8:18 AM CDT Pulse 72 09/30/2019 8:18 AM CDT Temperature 36.9 ??C (98.5 ??F) 09/30/2019 8:18 AM CDT Respiratory Rate 18 09/30/2019 8:18 AM CDT Oxygen Saturation 98% 09/30/2019 8:18 AM CDT Inhaled Oxygen Concentration - - Weight 122 kg (269 lb 13.5 oz) 09/30/2019 8:18 AM CDT Height 178.1 cm (5' 10.12) 09/30/2019 8:18 AM CDT Body Mass Index 38.59 09/30/2019 8:18 AM CDT documented in this encounter Patient Instructions Patient InstructionsFrances Earline Tellez MD - 09/30/2019 8:00 AM CDT Images from the original note were not included. Patient Education Allergies, Adult An allergy means that your body reacts to something that bothers it (allergen). It is not a normal reaction. This can happen from something that you: ?? Eat. ?? Breathe in. ?? Touch. You can have an allergy (be allergic) to: ?? Outdoor things, like: ? Pollen. ? Grass. ? Weeds. ?? Indoor things, like: ? Dust. ? Smoke. ? Pet dander. ?? Foods. ?? Medicines. ?? Things that bother your skin, like: ? Detergents. ? Chemicals. ? Latex. ?? Perfume. ?? Bugs. An allergy cannot spread from person to person (is not contagious). Follow these instructions at home: ?? Stay away from things that you know you are allergic to. ?? If you have allergies to things in the air, wash out your nose each day. Do it with one of these: ? A salt-water (saline) spray. ? A container (neti pot). ?? Take qjpw-ren-fmlhino and prescription medicines only as told by your doctor. ?? Keep all follow-up visits as told by your doctor. This is important. ?? If you are at risk for a very bad allergy reaction (anaphylaxis), keep an auto-injector with you all the time. This is called an epinephrine injection. ? This is pre-measured medicine with a needle. You can put it into your skin by yourself. ? Right after you have a very bad allergy reaction, you or a person with you must give the medicine in less than a few minutes. This is an emergency. ?? If you have ever had a very bad allergy reaction, wear a medical alert bracelet or necklace. Yourvery bad allergy should be written on it. Contact a health care provider if: ?? Your symptoms do not get better with treatment. Get help right away if: ?? You have symptoms of a very bad allergy reaction. These include: ? A swollen mouth, tongue, or throat. ? Pain or tightness in your chest. ? Trouble breathing. ? Being short of breath. ? Dizziness. ? Fainting. ? Very bad pain in your belly (abdomen). ? Throwing up (vomiting). ? Watery poop (diarrhea). Summary ?? An allergy means that your body reacts to something that bothers it (allergen). It is not a normal reaction. ?? Stay away from things that make your body react. ?? Take gimj-tdu-gwabefz and prescription medicines only as told by your doctor. ?? If you are at risk for a very bad allergy reaction, carry an auto-injector (epinephrine injection) all the time. Also, wear a medical alert bracelet or necklace so people know about your allergy. This information is not intended to replace advice given to you by your health care provider. Make sure you discuss any questions you have with your health care provider. Document Released: 08/04/2013 Document Revised: 07/23/2017 Document Reviewed: 07/23/2017 [employer] Patient Education ?? 2020 [employer]. documented in this encounter Progress Notes Laura Tellez MD - 09/30/2019 8:00 AM CDT Images from the original note were not included. Estab Patient Visit Subjective Patient ID: Dasha Wellington is a 24 y.o. male. Chief Complaint Patient presents with ??? allergy symptoms: stuffy nose, eyes reddened, eye swelling past 3 days, sx have been worse with windy weather HPI Patient is a 24-year-old male who presents for seasonal allergy symptoms. This is his first visit with me. He was unable to go to work last night because his symptoms had been so severe in the last 3 days. He says he has always had allergy symptoms and he had been taking Claritin once daily for the last 2 weeks which had some benefit. However, with the wind recently his eyes have been watery and burning and he feels that he cannot see well and also he has had severe nasal congestion to the point of not being able to breathe through his nose even with using Afrin nasal spray which in the past had been helpful. He says when he goes indoors his nasal symptoms improve. His eye burning and watering continue though are improved indoors. [place] [employer] and does wear eye protection. Denies any respiratory symptoms including no shortness of breath, wheezing, cough. He does have some scratchy throat. His had no recent fever. In fact he has had a recent COVID testing as requested by his employer. Current Outpatient Medications on File Prior to Visit Medication Sig Dispense Refill ??? loratadine (CLARITIN) 10 MG tablet Take 10 mg by mouth 1 (one) time each day allergies No current facility-administered medications on file prior to visit. Environmental and Pollen extract The following portions of the patient's chart were reviewed in this encounter and updated as appropriate: Tobacco Allergies Meds Review of Systems See HPI. Objective Physical Exam Blood pressure 126/72, pulse 72, temperature 36.9 ??C (98.5 ??F), temperature source Temporal, resp.rate 18, height 1.781 m (5' 10.12), weight 122 kg (269 lb 13.5 oz), SpO2 98 %. Generally, not in acute distress but tired appearing. Pupils equal round reactive to light, conjunctive are red, injected, watery. Nares without significant drainage. Oropharynx with mild erythema but no exudate. Uvula is midline. Moist mucous membranes. Neck is supple without lymphadenopathy. Heart regular rate and rhythm without murmurs rubs or gallops. Lungs clear to auscultation bilaterally. Skin without rash. Assessment/Plan Diagnoses and all orders for this visit: Seasonal allergic conjunctivitis - olopatadine (PATANOL) 0.1 % ophthalmic solution; Administer 1 drop into affected eye(s) 2 (two) times a day if needed for allergies Seasonal allergic rhinitis due to pollen - fluticasone (FLONASE) 50 MCG/ACT nasal spray; Administer 2 sprays into each nostril 1 (one) time each day - levocetirizine (Xyzal) 5 MG tablet; Take 1 tablet (5 mg total) by mouth 1 (one) time each day in the evening Most significant findings today are eye exam with evidence for allergic conjunctivitis. Will treat with antihistamine eye drops and for his seasonal allergic rhinitis will treat with fluticasone nasal spray. I ordered a different antihistamine, not sure if it will be covered on his formulary and not sure it will be any more beneficial than Claritin or another yfsb-srb-qhglhps nonsedating antihistamine. He has tried Benadryl which was not helpful and do not advise given side effect profile. He asked for a work note for last night and allow him to go back tonight. If he is not significantly better this evening, he may call for another work note. This dictation was created with voice recognition software and therefore may contain errors that went unnoticed. Patient Instructions Patient Education Allergies, Adult An allergy means that your body reacts to something that bothers it (allergen). It is not a normal reaction. This can happen from something that you: ?? Eat. ?? Breathe in. ?? Touch. You can have an allergy (be allergic) to: ?? Outdoor things, like: ? Pollen. ? Grass. ? Weeds. ?? Indoor things, like: ? Dust. ? Smoke. ? Pet dander. ?? Foods. ?? Medicines. ?? Things that bother your skin, like: ? Detergents. ? Chemicals. ? Latex. ?? Perfume. ?? Bugs. An allergy cannot spread from person to person (is not contagious). Follow these instructions at home: ?? Stay away from things that you know you are allergic to. ?? If you have allergies to things in the air, wash out your nose each day. Do it with one of these: ? A salt-water (saline) spray. ? A container (neti pot). ?? Take osnd-ivd-slfocpr and prescription medicines only as told by your doctor. ?? Keep all follow-up visits as told by your doctor. This is important. ?? If you are at risk for a very bad allergy reaction (anaphylaxis), keep an auto-injector with you all the time. This is called an epinephrine injection. ? This is pre-measured medicine with a needle. You can put it into your skin by yourself. ? Right after you have a very bad allergy reaction, you or a person with you must give the medicine in less than a few minutes. This is an emergency. ?? If you have ever had a very bad allergy reaction, wear a medical alert bracelet or necklace. Yourvery bad allergy should be written on it. Contact a health care provider if: ?? Your symptoms do not get better with treatment. Get help right away if: ?? You have symptoms of a very bad allergy reaction. These include: ? A swollen mouth, tongue, or throat. ? Pain or tightness in your chest. ? Trouble breathing. ? Being short of breath. ? Dizziness. ? Fainting. ? Very bad pain in your belly (abdomen). ? Throwing up (vomiting). ? Watery poop (diarrhea). Summary ?? An allergy means that your body reacts to something that bothers it (allergen). It is not a normal reaction. ?? Stay away from things that make your body react. ?? Take vfus-igm-qsmjyke and prescription medicines only as told by your doctor. ?? If you are at risk for a very bad allergy reaction, carry an auto-injector (epinephrine injection) all the time. Also, wear a medical alert bracelet or necklace so people know about your allergy. This information is not intended to replace advice given to you by your health care provider. Make sure you discuss any questions you have with your health care provider. Document Released: 08/04/2013 Document Revised: 07/23/2017 Document Reviewed: 07/23/2017 [employer] Patient Education ?? 2020 [employer]. documented in this encounter Plan of Treatment Not on filedocumented as of this encounter Visit Diagnoses Diagnosis Seasonal allergic conjunctivitis - Prima ry Other chronic allergic conjunctivitis Seasonal allergic rhinitis due to pollen documented in this encounter Care Teams Golf Course Mechanic Relationship Specialty Start Date End Date Marilou Ruiz PA-C PCP - General Family Medicine 08/19/1906/21 documented as of this encounter
--- OUTSIDE RECORDS SUMMARY | 2022-03-22 23:37 | XMS_ITS | Encounter Summary ---
:1995 Author Organization [facility] Address [address] [place] [address] Care Team Providers Name Role Phone Marilou Ruiz PA-C Primary Care Provider Unavailable Reason for Visit Reason Onset Date Comments refill request 03/25/2020 Encounter Details Date Type Department Care Team Description 03/25/2020 Telephone Felecia Del Real APRN, refill request [address] [place] [address] [address] [facility] [phone] [place], [place] [address] (Wo rk) Social History Tobacco Use Types [...] this encounter Miscellaneous Notes Telephone Encounter - Vanessa Mann - 03/25/2020 11:03 AM CST triamcinolone (KENALOG) 0.5 % ointment Apply topically 2 (two) times a day For 2-4 weeks Flare up on hands Parker irby ICAL RADIATION TECHNICIAN documented in this encounter Plan of Treatment Not on filedocumented as of this encounter Visit Diagnoses Diagnosis Dermatitis - Primary Contact dermatitis and other eczema, due to unspecified cause documented in this encounter Care Teams Cullet Crusher And Washer Relationship Specialty Start Date End Date Marilou Ruiz PA-C PCP - General Family Medicine 08/19/1906/21 documented as of this encounter
--- OUTSIDE RECORDS SUMMARY | 2022-03-22 23:37 | XMS_ITS | Encounter Summary ---
:1995 Author Organization [facility] Address [address] [place] [address] Care Team Providers Name Role Phone Marilou Ruzi PA-C Primary Care Provider Unavailable Encounter Details Date Type Department Care Team Description 04/13/2020 Orders Only [facility] Gayle Ruff Encounter for [address], KENO WRITER/RUNNER, FACILITY TECHNICIAN preope rative screening [address] [place] [address] COVID-19 virus (Primary [phone] Dx) Social History Tobacco Use Types Packs/Day [...] Primary documented in this encounter Care Teams Commissions Specialist Relationship Specialty Start Date End Date Marilou Ruiz PA-C PCP - General Family Medicine 08/19/1906/21 documented as of this encounter
--- OUTSIDE RECORDS SUMMARY | 2022-03-22 23:37 | XMS_ITS | Encounter Summary ---
:1995 Author Organization [facility] Address [address] [place] [address] Care Team Providers Name Role Phone Laura Tellez MD Primary Care Provider Unavailable Encounter Details Date Type Department Care Team Description 11/05/2020 Lab [place] Encounter for examination [address] [place] [address] Transportation (DOT) [phone] Social History Tobacco Use Types Packs/Day Years [...] Name Priority Date/Time Associated Diagnosis Comme nts UA-SHORT, BUSINESS Routine 11/05/2020 9:09 AM Encounter for Inna harmon for this ACCOUNT CDT examination required by hattie stephens are in Department of the results Transportation (DOT) section . documented in this encounter Results UA-Short, Business Account (11/05/2020 9:09 AM CDT) [facility] Method Time Signature Type CLEAN CATCH 11/05/2020 [facility] 9:12 AM CDT [facility] Color, Urine YELLOW YELLOW 11/05/2020 [facility] 9:12 AM CDT [facility] Clarity, CLEAR CLEAR 11/05/2020 [facility] Urine 9:12 AM CDT [facility] Glucose, NEGATIVE NEGATIVE 11/05/2020 [facility] Urine mg/dL 9:12 AM CDT [facility] Bilirubin, NEGATIVE NEGATIVE 11/05/2020 [facility] Urine 9:12 AM CDT [facility] Ketones, NEGATIVE NEGATIVE 11/05/2020 [facility] Urine mg/dL 9:12 AM CDT [facility] Specific 1.025 1.000 11/05/2020 [facility] [place], ->=1.030 9:12 AM CDT [facility] Blood, Urine NEGATIVE NEGATIVE 11/05/2020 [facility] 9:12 AM CDT [facility] pH, Urine 5.5 5.0 - 7.0 11/05/2020 [facility] 9:12 AM CDT [facility] Protein, NEGATIVE NEGATIVE-TRA 11/05/2020 [facility] Urine CE mg/dL 9:12 AM CDT [facility] Urobilinogen, 0.2 0.2 - 1.0 11/05/2020 [facility] Urine E.U./dL 9:12 AM CDT [facility] Nitrite, NEGATIVE NEGATIVE 11/05/2020 [facility] Urine 9:12 AM CDT [facility] Leukocytes, NEGATIVE NEGATIVE 11/05/2020 [facility] Urine 9:12 AM CDT [facility] Specimen Anatomical Collection Method Collection Time Receive d Time (Source) Location / / Volume Laterality Urine (Urine, 11/05/2020 9:09 AM 11/06/19 9:09 Clean Catch) CDT AM CDT Laura Tellez MD LAB URINE ORDERABLES Performing Organization Address City/State/ZIP Code Phon e Number [facility] [address] [place] [address] [place] [address] documented in this encounter Visit Diagnoses Diagnosis Encounter for examination required by De partment of Transportation (DOT) documented in this encounter Care Teams Lacer And Tier Relationship Specialty Start Date End Date Laura Tellez MD PCP - General Family Medicine 08/02/20 documented as of this encounter
--- OUTSIDE RECORDS SUMMARY | 2022-03-22 23:37 | XMS_ITS | Encounter Summary ---
:1995 Author Organization [facility] Address [address] [place] [address] Care Team Providers Name Role Phone Marilou Ruiz PA-C Primary Care Provider Unavailable Encounter Details Date Type Department Care Team Description 04/13/2020 Orders Only [facility] Gayle Ruff Encounter for [address], RESEARCH METHODS INSTRUCTOR, DISTRIBUTOR PUBLICATIONS preope rative screening [address] [place] [address] COVID-19 virus (Primary [phone] Dx) Social History Tobacco Use Types Packs/Day [...] Primary documented in this encounter Care Teams Math And Science Instructor Relationship Specialty Start Date End Date Marilou Ruiz PA-C PCP - General Family Medicine 08/19/1906/21 documented as of this encounter
--- OUTSIDE RECORDS SUMMARY | 2022-03-22 23:37 | XMS_ITS | Encounter Summary ---
:1995 Author Organization [facility] Address [address] [place] [address] Care Team Providers Name Role Phone Laura Tellez MD Primary Care Provider Unavailable Encounter Details Date Type Department Care Team Description 11/05/2020 Orders Only Laura Tyler Encounter for [address] [place] MD Earline examination required by VINCE Sifuentes [id number] Department [facility] [phone] Transportation (DOT) (Primary Dx) Social History Tobacco [...] on filedocumented as of this encounter Results UA-Short, Business Account (11/05/2020 9:09 AM CDT) Patholo gist Method Time Signature Type CLEAN CATCH 11/05/2020 [facility] 9:12 AM CDT [facility] Color, Urine YELLOW YELLOW 11/05/2020 [facility] 9:12 AM CDT [facility] Clarity, CLEAR CLEAR 11/05/2020 [facility] Urine 9:12 AM CDT [facility] Glucose, NEGATIVE NEGATIVE 11/05/2020 [facility] Urine mg/dL 9:12 AM CDT [facility] Bilirubin, NEGATIVE NEGATIVE 11/05/2020 [facility] Urine 9:12 AM CDT [facility] Ketones, NEGATIVE NEGATIVE 11/05/2020 [facility] Urine mg/dL 9:12 AM CDT [facility] Specific 1.025 1.000 11/05/2020 [facility] [place], ->=1.030 9:12 AM CDT [facility] Blood, Urine NEGATIVE NEGATIVE 11/05/2020 [facility] 9:12 AM CDT [facility] pH, Urine 5.5 5.0 - 7.0 11/05/2020 [facility] 9:12 AM CDT [facility] Protein, NEGATIVE NEGATIVE-TRA 11/05/2020 [facility] Urine CE mg/dL 9:12 AM CDT [facility] Urobilinogen, 0.2 0.2 - 1.0 11/05/2020 [facility] [place] Urine E.U./dL 9:12 AM CDT [facility] Nitrite, NEGATIVE NEGATIVE 11/05/2020 [facility] Urine 9:12 AM CDT [facility] Leukocytes, NEGATIVE NEGATIVE 11/05/2020 [facility] Urine 9:12 AM CDT [facility] Specimen Anatomical Collection Method Collection Time Receive d Time (Source) Location / / Volume Laterality Urine (Urine, 11/05/2020 9:09 AM 11/06/19 9:09 Clean Catch) CDT AM CDT Laura Tellez MD LAB URINE ORDERABLES Performing Organization Address City/State/ZIP Code Phon e Number [facility] [address] [place] [address] [place] [address] documented in this encounter Visit Diagnoses Diagnosis Encounter for examination required by De partment of Transportation (DOT) - Primary documented in this encounter Care Teams Senior Administrative Assistant Relationship Specialty Start Date End Date Laura Tellez MD PCP - General Family Medicine 08/02/20 documented as of this encounter
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
--- OUTSIDE RECORDS SUMMARY | 2022-03-22 23:37 | XMS_ITS | Encounter Summary ---
:[address] [facility] Address [address] [place] [address] Care Team Providers Name Role Phone Laura Tellez MD Primary Care Provider Unavailable Reason for Visit Reason Onset Date Comments Covid Triage 03/14/2021 Encounter Details Date Type Department Care Team Description 03/14/2021 Telephone [facility] Pastor Dailey, JEAN CLAUDE, Covid Triage [address] [facility] PSYCH NP, C [employer] [address] [place] [address] [address] [place], [place] [address] (Wo rk) Social History Tobacco Use Types [...] this encounter Progress Notes MYKEL Grajeda - 03/14/2021 10:51 AM CST 03/14/21 1000 COVID Algorithm Patient has the following symptoms: Cough;Shortness of breath;Chills;Headache;Sore throat;Nasal congestion;Fatigue;Loss of taste or smell Date of onset of symptoms 03/13/21 Acuity evaluation - patient has the following symptoms: None Patient belongs to a high risk group: None Patient has the following special indications None Patient has close contact with confirmed COVID case: Yes Any positive indication in any question? Yes Is Patient Symptomatic? Yes Patient has the following strep criteria: None Patient has the following flu symptom criteria: None Instructions for patients not meeting flu symptom criteria: Send for COVID M[employer] COACH swab Patient instructed to report to the [...] provider for their symptoms, they can [facility] when calling to schedule. ITY LEAD documented in this encounter Plan of Treatment Not on filedocumented as of this encounter Results SARS Coronavirus 2 RNA detection, v (03/14/2021 4:55 PM QUALITY LEAD) [facility] Method Time Signature SARS Covid Nasopharyngeal 03/15/2021 [facility] specimen 4:18 AM [facility] source SARS CoV2 Undetected Undetected 03/15/2021 [facility] RNA 4:18 AM [facility] Comment: SARS-CoV-2 RNA absent. This result does not rule out COVID-19 in the patient, as the sensitiv ity of the test depends on the timing of the specimen co llection and the quality of the specimen. Result should b e correlated with patient's history and clinical presentat ion. Method - 03/15/2021 4:18 AM [facility]AD [facility] Comment: LETICIA- This PCR test uses the leticia SARS -CoV-2 assay ([employer] and is perform ed on the leticia [employer] System. It has received Emergency U se Authorization (EUA) by the U.S. Food and Drug Administ akash. Performance characteristics were verified by [facility] inic in a manner consistent with CLIA requirements. Fact sheets for this Emergency Use Autho rization (EUA) can be found at the following links: https://www.fda.gov/media/806060/downloa d for Healthcare Providers https://www.fda.gov/media/332387/downloa d for Patients Test Performed by: [facility] [address] [place] [address] [address] Supervisor: Cade Cespedes M.D. Ph. D.; CLIA# [id number] Specimen Anatomical Collection Method Collection Time Receive d Time (Source) Location / / Volume Laterality Swab 03/14/2021 4:55 PM 4:55 (Nasopharyngeal) QUALITY LEAD PM [facility] LEAD Pastor Dailey DNP, PSYCH NP, COMMERCIAL LINES ACCOUNT ASSISTANT LAB MOLECULAR DIAGNOSTI CS ORDERABLES Performing Organization Address City/State/ZIP Code Phon e Number [facility] see result attachment for specific address documented in this encounter Visit Diagnoses Diagnosis Encounter for screening laboratory testi ng for COVID-19 virus - Primary documented in this encounter Care Teams Tile Layer Helper Relationship Specialty Start Date End Date Laura Tellez MD PCP - General Family Medicine 08/02/20 documented as of this encounter
--- OUTSIDE RECORDS SUMMARY | 2022-03-22 23:37 | XMS_ITS | Encounter Summary ---
:[address] [facility] Address [address] [place] [address] Care Team Providers Name Role Phone Marilou Ruiz PA-C Primary Care Provider Unavailable Reason for Visit Reason Onset Date Comments Provider calling for opinion 04/12/2020 Encounter Details Date Type Department Care Team Description 04/12/2020 Telephone [facility] Ear Nose Throat Hilary, Chris Robbins, Provider calling for [address] [facility] [place] [address] Social History Tobacco Use Types Packs/Day Years [...] this encounter Miscellaneous Notes Telephone Encounter - Cinthia Nelson RN - 04/12/2020 3:14 PM CST Pt scheduled with Carolann tomorrow for eval as no providers will be in office for 1 week after 04/13 EYOR CONSOLE OPERATOR Telephone Encounter - Cinthia Neslon RN - 04/12/2020 2:19 PM CST Please review x-ray and clinic note and advise. EYOR CONSOLE OPERATOR Telephone Encounter - Emery Cisse - 04/12/2020 11:58 AM CST Patient is currently seeing Dr. Tellez at the [facility]. Dr. Tellez would like to speak with oneof the ENT providers or nurses about patient and would like to get an opinion on sinuses and a fracture. Please call the [place] office. [phone] EYOR CONSOLE OPERATOR documented in this encounter Plan of Treatment Not on filedocumented as of this encounter Visit Diagnoses Not on filedocumented in this encounter Additional Health Concerns Infection Onset Date Last Indicated Resolved Time COVID-19 Rule Out 04/17/2020 04/17/2020 04/18/2020 9:3 8 AM CONVEYOR CONSOLE OPERATOR COVID-19 Rule Out 04/27/2020 04/27/2020 04/27/2020 6:0 9 PM CONVEYOR CONSOLE OPERATOR documented as of this encounter Care Teams Train Crew Member Relationship Specialty Start Date End Date Marilou Ruiz PA-C PCP - General Family Medicine 08/19/1906/21 documented as of this encounter
--- OUTSIDE RECORDS SUMMARY | 2022-03-22 23:37 | XMS_ITS | Encounter Summary ---
:1995 Author Organization [facility] Address [address] [place] [address] Care Team Providers Name Role Phone Marilou Ruiz PA-C Primary Care Provider Unavailable Reason for Visit Reason Comments Pre-op Exam Encounter Details Date Type Department Care Team Description 04/13/2020 Consult [facility] Allergy Eduardo Peralta MD Preop examination [address] (Primary Dx) [place] [address] [place], [place] [phone] (Wo rk) Social History Tobacco Use [...] Time Taken Comments Blood Pressure 136/82 04/13/2020 11:56 AM TRAFFIC SAFETY ADMINISTRATOR Pulse 90 04/13/2020 11:56 AM TRAFFIC SAFETY ADMINISTRATOR Temperature 36.4 ??C (97.5 ??F) 04/13/2020 11:56 AM TRAFFIC SAFETY ADMINISTRATOR Respiratory Rate 18 04/13/2020 11:56 AM TRAFFIC SAFETY ADMINISTRATOR Oxygen Saturation 98% 04/13/2020 11:56 AM TRAFFIC SAFETY ADMINISTRATOR Inhaled Oxygen Concentration - - Weight 127 kg (279 lb 15.8 oz) 04/13/2020 11:56 AM TRAFFIC SAFETY ADMINISTRATOR Height 175 cm (5' 8.9) 04/13/2020 11:56 AM TRAFFIC SAFETY ADMINISTRATOR Body Mass Index 41.47 04/13/2020 11:56 AM TRAFFIC SAFETY ADMINISTRATOR documented in this encounter Progress Notes Eduardo Peralta MD - 04/13/2020 12:00 PM CST Pre-Op History and Physical - Estab Assessment/Plan Dasha Wellington is an 24 y.o. male. Here for a preoperative evaluation for Nasal fracture repair. This surgery is scheduled to be performed by surgeon Hilary on 04/20. The preoperative risk assessment has determined the following: No contraindications to planned surgery Dasha was seen today for pre-op exam. Diagnoses and all orders for this visit: Preop examination (Primary) Nasal fracture HPI: Current Outpatient Medications: ??? fluticasone (FLONASE) 50 MCG/ACT nasal spray, Administer 2 sprays into each nostril 1 (one) timeeach day (Patient not taking: Reported on 04/13/2020), Disp: 16 g, Rfl: 5 ??? levocetirizine (Xyzal) 5 MG tablet, Take 1 tablet (5 mg total) by mouth 1 (one) time each day inthe evening (Patient not taking: Reported on 04/13/2020), Disp: 30 tablet, Rfl: 5 ??? olopatadine (PATANOL) 0.1 % ophthalmic solution, Administer 1 drop into affected eye(s) 2 (two) times a day if needed for allergies, Disp: 5 mL, Rfl: 5 ??? triamcinolone (KENALOG) 0.5 % ointment, Apply topically 2 (two) times a day hands, Disp: 30 g, Rfl: 3 Allergies: Environmental and Pollen extract Past Surgical History: Procedure Laterality Date ??? HAND SURGERY Left 1997 ??? WISDOM TOOTH EXTRACTION Past Medical History: Diagnosis Date ??? Allergic ??? Jaundice infancy ??? Meningitis ??? Pneumonia ??? Varicella childhood disease ??? Visual impairment corrective lenses Family History Problem Relation Age of Onset ??? Hypertension Mother ??? Osteoporosis Mother ??? Other Mother smokes 3 packs a day ??? Heart disease Mother ??? LYLA disease Father ??? Other Father stomach surgery ??? No Known Problems Sister ??? No Known Problems Son ??? HIV Mother's Sister ??? Diabetes Mother's Brother type 2 ??? No Known Problems Father's Sister ??? Cancer Father's Brother unknown type ??? No Known Problems Maternal Grandmother ??? Diabetes Maternal Grandfather type 2 with amputation ??? Cancer Paternal Grandmother breast ??? Cancer Paternal Grandfather lung ??? No Known Problems Sister ??? No Known Problems Half-Brother ??? Heart disease Mother's Brother triple bypass ??? Diabetes Mother's Brother type 2 ??? No Known Problems Father's Sister ??? No Known Problems Father's Sister ??? No Known Problems Father's Sister ??? No Known Problems Father's Sister ??? No Known Problems Father's Brother ??? No Known Problems Father's Brother ??? No Known Problems Father's Brother ??? No Known Problems Father's Brother ??? No Known Problems Father's Brother ??? No Known Problems Father's Brother Social History Socioeconomic History ??? Marital status: Spouse name: Peggy ??? Number of children: 2 ??? Years of education: 12 ??? Highest education level: None Occupational History Comment: Field Maintenance Social Needs ??? Financial resource strain: Not hard at all ??? Food insecurity Worry: Never true Inability: Never true ??? Transportation needs Medical: No Non-medical: No Tobacco Use ??? Smoking status: Never Smoker ??? Smokeless tobacco: Never Used Substance and Sexual Activity ??? Alcohol use: Not Currently ??? Drug use: Never ??? Sexual activity: Yes Lifestyle ??? Physical activity Days per week: None Minutes per session: None ??? Stress: None Relationships ??? Social connections Talks on phone: None Gets together: None Attends muslim service: None Active member of club or organization: None Attends meetings of clubs or organizations: None Relationship status: None ??? Intimate partner violence Fear of current or ex partner: None Emotionally abused: None Physically abused: None Forced sexual activity: None Other Topics Concern ??? None Social History Narrative Lives in house with pyllan-bl-yim (for now until closing) with spouse and two kids. 2 dogs. Review of Systems Objective Cardiovascular Risk Able to walk briskly > two blocks on level ground w/o stop: Yes Climb one flight of stairs or up hill w/o stop?: Yes High Risk Surgery (orthopedic, intraperitoneal, major vascular, intrathoracic)?: No Ischemic Heart Disease: No Cerebral Vascular Disease: No Chronic Kidney Disease >/= Stage 3 (defined by GFR < 60): No Diabetes Mellitus: No Most recent Glucose over 100: No Congestive Heart Failure: No Coronary Artery Disease: No History of Arrythmias: No Valvular Disease: No Pulmonary Risk History of Asthma: No SpO2: 98 % History of COPD: No History of Obstructive Sleep Apnea: No STOP-Bang Questionnaire Do you snore loudly?: No Do you often feel tired or fatigued after your sleep?: No Has anyone ever observed you stop breathing in your sleep?: No Do you have or are you being treated for high blood pressure?: No Recent BMI (Calculated): 41.5 Is BMI greater than 35 kg/m2?: 1=Yes Age older than 50 years old?: 0=No Is your neck circumference greater than 17 inches (Male) or 16 inches (Female)?: Yes Gender - Male: 1=Yes STOP-Bang Total Score: 3 Appliances or Implants Defibrillator: No Pacemaker: No Other Risks Chronic Liver Disease: No Muscular Dystrophy: No Mytonic Dystrophy: No Myasthenia Gravis: No Malignant Hyperthermia: No : No Rheumatoid Arthritis: No Tracheostomy: No Seizure Disorder: No Visit Vitals BP 136/82 Pulse 90 Temp 36.4 ??C (97.5 ??F) Resp 18 Ht 1.75 m (5' 8.9) Wt 127 kg (279 lb 15.8 oz) SpO2 98% BMI 41.47 kg/m?? Smoking Status Never Smoker BSA 2.48 m?? Physical Exam Radiology Tests to be Ordered: Additional Tests to be Ordered: Laboratory Tests to be Ordered: Special Note to Anesthesia if needed: Referrals/Consultations: Immunizations: Tetanus Influenza Comments: You should not drive for at least 24 hours after your surgery, or as instructed by your surgeon. Do NOT take ibuprofen, Aleve and aspirin 7 days prior to surgery. Do NOT take all supplements 7 days prior to surgery. Take all other medications as prescribed with a small sip of water unless instructed otherwise. Medication Instructions: FIC SAFETY ADMINISTRATOR documented in this encounter Plan of Treatment Not on filedocumented as of this encounter Visit Diagnoses Diagnosis Preop examination - Primary Unspecified pre-operative examination documented in this encounter Care Teams Cavalry Officer Relationship Specialty Start Date End Date Marilou Ruiz PA-C PCP - General Family Medicine 08/19/1906/21 documented as of this encounter
--- OUTSIDE RECORDS SUMMARY | 2022-03-22 23:38 | XMS_ITS | Encounter Summary ---
:1995 Author Organization [facility] Address [address] [place] [address] Care Team Providers Name Role Phone None, Pcp Primary Care Provider Unavailable Encounter Details Date Type Department Care Team Description 05/06/2018 Office Visit [facility] Pastor Dailey, Viral URI (Primary Dx) [address] [facility] [address] DNP, SENIOR UI DESIGNER, C DATA OPERATIONS MANAGER [address] [place] [address] [phone] [place] [address] Social History Tobacco Use Types Packs/Day Years Used Date Smoking Tobacco: Never Assessed Financial Resource Strain Answer Date Recorded How [...] Sign Reading Time Taken Comments Blood Pressure - - Pulse 80 05/06/2018 3:59 PM ASTRO TECHNICIAN Temperature 36.7 ??C (98 ??F) 05/06/2018 3:59 PM ASTRO TECHNICIAN Respiratory Rate - - Oxygen Saturation 98% 05/06/2018 3:59 PM ASTRO TECHNICIAN Inhaled Oxygen Concentration - - Weight - - Height - - Body Mass Index - - documented in this encounter Progress Notes Pastor Dailey NP - 05/06/2018 4:00 PM CST Subjective History was provided by the patient. Dasha Wellington is a 22 y.o. male who presents for evaluation of URI symptoms that has been ongoing for the past 2 days, gradually worsening since that time. Recent travel out of the country: no. Previously evaluated since symptoms began: no. Recent antibiotic use in the past 30 days: amoxicillinfor a recent tooth infection, finished Rx yesterday, was on amoxicillin for 7 days. Exposure to anyone with similar symptoms: Patient's son and both have been recently ill. Home cares to date: ibuprofen and Tylenol which he notes has helped with his headache. The following portions of the patient's chart were reviewed in this encounter and updated as appropriate: Allergies Meds No Known Allergies Review of Systems Constitutional: Positive for fatigue. Negative for fever. HENT: Positive for congestion, ear pain (left sided) and sore throat (worse when swallowing. Denies any known strep exposure). Negative for rhinorrhea. Respiratory: Positive for cough. Musculoskeletal: Positive for myalgias. Neurological: Positive for headaches. Objective Pulse 80, temperature 36.7 ??C (98 ??F), SpO2 98 %. Physical Exam Constitutional: He appears well-developed and well-nourished. No distress. HENT: Right Ear: Tympanic membrane and ear canal normal. Left Ear: Tympanic membrane and ear canal normal. Nose: Rhinorrhea present. Mouth/Throat: Uvula is midline and oropharynx is clear and moist. No tonsillar exudate. Eyes: Conjunctivae are normal. Neck: Normal range of motion. Neck supple. Cardiovascular: Normal rate, regular rhythm and normal heart sounds. Pulmonary/Chest: Effort normal and breath sounds normal. Assessment and Plan 1. Viral URI Discussed with patient that antibiotics would not be beneficial to treat symptoms as they are most likely viral. Advised home cares to include increased rest, fluids, and OTC cough suppressants (i.e. Dextromethorphan) and/or cough expectorants (i.e. Guaifenesin). Cough may last up to 3 weeks. If symptoms substantially worsen or do not improve after 3 weeks follow up in primary care/acute care for further evaluation/testing. For sinus congestion advised OTC sinus decongestants, nasal rinses/sprays, as well as Afrin nasal sprays (advised not using for longer than 3 days to rebound effect of sinus congestion). If symptoms persist greater than 10-14 days return for reevaluation. Do not share cups or utensils and always practice good hand hygiene to help prevent spreading your infection. O TECHNICIAN documented in this encounter Plan of Treatment Not on filedocumented as of this encounter Visit Diagnoses Diagnosis Viral URI - Primary Acute upper respiratory infections of un specified site documented in this encounter Care Teams Photoengraving Apprentice Relationship Specialty Start Date End Date None, Pcp PCP - General Pottery Decoration Designer 05/06/18 08/18/19 [address] [place] [phone] documented as of this encounter
--- OUTSIDE RECORDS SUMMARY | 2022-03-22 23:38 | XMS_ITS | Encounter Summary ---
:1995 Author Organization [facility] Address [address] [place] [address] Care Team Providers Name Role Phone Marilou Ruiz PA-C Primary Care Provider Unavailable Reason for Visit Reason Onset Date Comments COVID 19 08/25/2019 Encounter Details Date Type Department Care Team Description 08/25/2019 Telephone SE Immunization Sim Crawford MD COVID 19 [address] [facility] [address] [place] [address] [place] [address] (Wo rk) Social History Tobacco Use Types [...] documented as of this encounter Progress Notes Estephanie Figueroa RN - 08/25/2019 1:54 PM CDT 08/25/19 1300 COVID-19 ALGORITHM Does the patient have close contact with a person with LAB confirmed COVID-19 case? No Symptoms in the past 48 hours: Cough;Sore throat;Chills;Muscle pain;Headache;New loss of smell/taste Does the patient have any of the following: No - send for drive thru testing Patient instructed to report to the screening station for testing and then home. Patient instructed to remain home until: ??? No fever for at least 72 hours (three full days without fever without the use of fever reducers AND ??? Other symptoms have improved AND ??? At least 7 days have passed since symptoms first appeared documented in this encounter Plan of Treatment Not on filedocumented as of this encounter Results SARS Coronavirus 2 RNA detection, v (08/25/2019 1:59 PM CDT) [facility] Method Time Signature SARS Covid Nasopharyngeal 08/26/2019 [facility] specimen 10:57 AM LABORATORIES source CDT SARS CoV2 Undetected Undetected 08/26/2019 [facility] RNA 10:57 AM LABORATORIES CDT Comment: SARS-CoV-2 RNA absent. This result does not rule out COVID-19 in the patient, as the sensitiv ity of the test depends on the timing of the specimen co llection and the quality of the specimen. Result should b e correlated with patient's history and clinical presentat ion. ADDITIONAL INFORMATIO N This test using the dm SARS-CoV-2 ass ay ([employer] performed on the dm 68 00 System has received Emergency Use Authorization (EU A) by the U.S. Food and Drug Administration, and is modified from the sawmill worker's instructions with a bridg ing study. Performance characteristics were verifie d by [facility] in a manner consistent with CLIA requiremen ts. Fact sheets for this Emergency Use Autho rization (EUA) assay can be found at the following link s: For Healthcare Providers: https://www.fda.gov/media/213687/downloa d For Patients: https://www.fda.gov/media/ 012565/download Test Performed by: [facility] [address] [place] [address] Policy Writer: Cade Cespedes M.D. Ph. D.; IA# [id number] Specimen Anatomical Collection Method Collection Time Receive d Time (Source) Location / / Volume Laterality Swab 08/25/2019 1:59 PM 0 3:11 (Nasopharyngeal) CDT PM CDT Sim Crawford MD LAB MOLECULAR DIAGNOSTICS OR DERABLES Performing Organization Address City/State/ZIP Code Phon e Number [facility] see result attachment for specific address documented in this encounter Visit Diagnoses Diagnosis Encounter for special screening examinat ion for infectious or parasitic disease - Primary documented in this encounter Care Teams Road Conductor Relationship Specialty Start Date End Date Marilou Ruiz PA-C PCP - General Family Medicine 08/19/1906/21 documented as of this encounter
--- OUTSIDE RECORDS SUMMARY | 2022-03-22 23:38 | XMS_ITS | Encounter Summary ---
:[address] [facility] Address [address] [place] [address] Care Team Providers Name Role Phone None, Pcp Primary Care Provider Unavailable Reason for Visit Reason Comments Shoulder Pain right Encounter Details Date Type Department Care Team Description 07/29/2018 Office Visit [facility] NitzaGerardgabriel Chavesain of r ight Orthopedics PATSY Mcgee CNP acromioclavicular [address], [place] [address] [place] encounter (Primary Dx) [phone] [place] [phone] Social History Tobacco Use Types Packs/Day Years [...] on file documented as of this encounter Patient Instructions Patient InstructionsMattasa Goddard APRN, CNP - 07/29/2018 2:00 PM CDT Modified immobilizer utilized to pull Clavicle down. This should be worn as much as tolerated. May come out for washing/showering. Letter employer provided. documented in this encounter Progress Notes Dimitri Goddard APRN, CNP - 07/29/2018 2:00 PM CDT New Patient Visit Reason For Consult Chief Complaint Patient presents with ??? Shoulder Pain right Date of Injury/Duration of Symptoms: 07/27/18 History Of Present Illness Dasha Wellington is a 23 y.o. male presenting to orthopedic clinic Right shoulder pain. Over this last week and the patient had a misstep and fell down approximately 3 stairs. He landed directly onhis right lateral shoulder. He states ever since his injury has been having difficulty moving his right shoulder. He has noticed a small bump on top of his shoulder pointing to the vicinity of his AC joint. He also states that this is the primary location of discomfort. He was seen by [facility] yesterday and a referral was placed for him to follow with orthopedics. Patient arrives to clinic today rating pain 7 out of 10. He states he is continue to wear his sling and remained as mobile as possible. Patient states since his original injury he has had no other injury. He denies any numbness or tingling in his right upper extremity. Past Medical History He has no past medical history on file. Surgical History He has no past surgical history on file. Family History HeNo family history on file. Social History He has no tobacco, alcohol, and drug history on file. Allergies Patient has no known allergies. Medications (Not in a hospital admission) Review of Systems Review of Systems Last Recorded Vitals There were no vitals taken for this visit. Physical Exam General: Alert and oriented x3. No acute distress. Extremity: Right upper extremity neurovascularly intact. CWMS checks positive. No edema right upper extremity. Right digit pronation strength Full and appropriate. Pronation supination negative. Right elbow flexion and extension full and appropriate compared to left. He does have slight discomfort in his AC joint region with extreme flexion. Patient extremely guarded with any shoulder mobilization. Small deformity visualized in the setting of AC joint. With pressure over this joint the patient is able to more comfortably externally and internally rotate his arm with his shoulder down neutral. Rightupper extremity skin clean dry and intact with no erythema or ecchymosis. Relevant Results X-rays right shoulder reveal no acute lesion or fracture. It does appear as though he has some elevation to his clavicle at the AC joint consistent with grade 3 AC joint sprain. Assessment/Plan Diagnosis Plan 1. Sprain of right acromioclavicular ligament, initial encounter Reviewed the radiologic and physical findings with the patient. I did share with the patient I believe he has an AC joint sprain, grade 3. It is difficult to rule out any additional soft tissue pathology in the right shoulder as he is so guarded. At this time we will begin with immobilization of his right arm for the next 3 weeks. A shoulder immobilizer was modified with a strep going over his AC joint to apply pressure trying to place the clavicle in a more anatomic position in hopes that it will stabilize down. The patient does not need to wear his wrist in the immobilizer allowing him to function with his arm at his side with internal and external rotation. Additionally symptomatic treatment such as anti- inflammatories and Tylenol may be utilized for pain on an as-needed basis. We will continue with this immobilization for approximately 2-3 weeks. We will bring the patient back for physical examination at next appointment and discuss need for additional immobilization versus mobilizing to prevent shoulder stiffness. Patient is okay with this plan. A letter to employer was provided with restrictions. All questions and concerns addressed. Patient and will follow-up in 3 weeks documented in this encounter Plan of Treatment Not on filedocumented as of this encounter Visit Diagnoses Diagnosis Sprain of right acromioclavicular ligame nt, initial encounter - Primary documented in this encounter Care Teams Java Xml Developer Relationship Specialty Start Date End Date None, Pcp PCP - General Controls Engineer 05/06/18 08/18/[address] [place] [phone] documented as of this encounter
--- OUTSIDE RECORDS SUMMARY | 2022-03-22 23:38 | XMS_ITS | Encounter Summary ---
:1995 Author Organization [facility] Address [address] [place] [address] Care Team Providers Name Role Phone None, Pcp Primary Care Provider Unavailable Encounter Details Date Type Department Care Team Description 05/16/2018 Immunization [place] Immunization due (Primary [address] Dx) [place] [id number] Social History Tobacco Use Types Packs/Day Years [...] documented as of this encounter Progress Notes Li Cain RN - 05/16/2018 10:40 AM CST Heart and lung check 05/06/2018. Pt informed to return for 2nd Hep B in 1 month and 3rd dose in 6 months LE SCHOOL TEACHER documented in this encounter Plan of Treatment Not on filedocumented as of this encounter Visit Diagnoses Diagnosis Immunization due - Primary documented in this encounter Care Teams Organ Pipe Maker Metal Relationship Specialty Start Date End Date None, Pcp PCP - General Automatic Profile Shaper Operator 05/06/18 08/18/19 [address] [place] [phone] documented as of this encounter
--- OUTSIDE RECORDS SUMMARY | 2022-03-22 23:38 | XMS_ITS | Encounter Summary ---
:1995 Author Organization [facility] Address [address] [place] [address] Care Team Providers Name Role Phone None, Pcp Primary Care Provider Unavailable Encounter Details Date Type Department Care Team Description 07/29/2018 Hospital Encounter [facility] [address] [place] [address] Social History Tobacco Use Types [...] Priority Date/Time Associated Diagnosis Comme nts XR SHOULDER 2+ Today 07/29/2018 2:45 PM Right shoulder pain, Results for this VIEWS RIGHT CDT unspecified procedure are i n chronicity the results section. documented in this encounter Results X-ray Shoulder 2+ Views Right (07/29/2018 2:45 PM CDT) Anatomical Region Laterality Modality Upper Extremities, Shoulder Right Radiographic Imaging Specimen (Source) Anatomical Collection Method Collection Time Re ceived Time Location / / Volume Laterality 07/29/2018 2:45 PM CDT Impressions 07/29/2018 2:56 PM CDT IMPRESSION: SHOULDER COMPLETE RIGHT (MIN 2 VIEWS) There is the suggestion of minimal scler osis at the distal clavicle and minimal narrowing at the acromioclavicul ar joint. ??The glenohumeral joint shows no abnormality. ??No fracture, dis location, or lytic or blastic lesion. Narrative 07/29/2018 2:56 PM CDT INDICATION: Shoulder pain, initial exam COMPARISON: None available Procedure Note Shelby Timmons MD - 07/29/2018 INDICATION: Shoulder pain, initial exam COMPARISON: None available IMPRESSION: SHOULDER COMPLETE RIGHT (MIN 2 VIEWS) There is the suggestion of minimal scler osis at the distal clavicle and minimal narrowing at the acromioclavicul ar joint. The glenohumeral joint shows no abnormality. No fracture, dislo cation, or lytic or blastic lesion. Dimitri Goddard POND SUPERVISOR, RAINBOW TROUT FARM MANAGER IMG XR PROCEDURES documented in this encounter Visit Diagnoses Not on filedocumented in this encounter Care Teams Chief Wharfinger Relationship Specialty Start Date End Date None, Pcp PCP - General Helium Arc Welder 05/06/18 08/18/[address] [place] [phone] documented as of this encounter
--- OUTSIDE RECORDS SUMMARY | 2022-03-22 23:38 | XMS_ITS | Encounter Summary ---
:1995 Author Organization [facility] Address [address] [place] [address] Care Team Providers Name Role Phone None, Pcp Primary Care Provider Unavailable Reason for Visit Reason Comments dry, cracking right hand, pain with use 10/30, pt meredith rned h Encounter Details Date Type Department Care Team Description 01/01/2019 Office Visit Marilou Marques, Dermatitis (Primary [address] PA-C Dx) [place] [address] Social History Tobacco Use Types Packs/Day Years [...] Sign Reading Time Taken Comments Blood Pressure 132/68 01/01/2019 9:55 AM CDT Pulse 84 01/01/2019 9:55 AM CDT Temperature 36.4 ??C (97.5 ??F) 01/01/2019 9:55 AM CDT Respiratory Rate 16 01/01/2019 9:55 AM CDT Oxygen Saturation 96% 01/01/2019 9:55 AM CDT Inhaled Oxygen Concentration - - Weight 125 kg (276 lb 3.8 oz) 01/01/2019 9:55 AM CDT Height 178.6 cm (5' 10.32) 01/01/2019 9:55 AM CDT Body Mass Index 39.28 01/01/2019 9:55 AM CDT documented in this encounter Patient Instructions Patient InstructionsSastan Ruiz PA-C - 01/01/2019 10:20 AM CDT -Follow up in four weeks if not resolved. documented in this encounter Progress Notes Marilou Ruiz PA-C - 01/01/2019 10:20 AM CDT Estab Patient Visit Subjective Patient ID: Dasha Wellington is a 23 y.o. male. Chief Complaint Patient presents with ??? dry, cracking right hand, pain with use 10/30, pt concerned h HPI Patient presents today with his and their young son for concerns regarding painful cracking skin on his right hand. He says he has dealt with this on and off for over 5 years. He says he thinks itstarted when he got his finger caught in a conveyor belt about 5 years ago. Cracking skin is worst on the fingers 2 through 5 but cracking extends to the palm. His left hand is not involved. He says cracking is so bad it hurts to bend his fingers. Denies redness or rash. Denies attempts to treat. Denies rash elsewhere on his body. Denies personal history of eczema or psoriasis. he works at the [employer] ([place]) and denies potential irritants or exposures. Has been feeling otherwise well. The following portions of the patient's chart were reviewed in this encounter and updated as appropriate: Tobacco Allergies Med Hx Surg Hx Fam Hx Soc Hx Review of Systems Constitutional: Negative for chills and fever. Musculoskeletal: Negative for arthralgias, joint swelling and myalgias. Skin: Negative for color change and wound. Neurological: Negative for weakness. Current Outpatient Medications: ??? triamcinolone (KENALOG) 0.5 % ointment, Apply topically 2 (two) times a day For 2-4 weeks., Disp: 15 g, Rfl: 0 Objective Vitals: 01/01/19 0955 BP: 132/68 Pulse: 84 Resp: 16 Temp: 36.4 ??C (97.5 ??F) SpO2: 96% Physical Exam Constitutional: He appears well-developed and well-nourished. No distress. HENT: Head: Normocephalic and atraumatic. Right Ear: External ear normal. Left Ear: External ear normal. Eyes: Conjunctivae are normal. Cardiovascular: Normal rate, regular rhythm and normal heart sounds. Pulmonary/Chest: Effort normal and breath sounds normal. Musculoskeletal: Left hand: He exhibits decreased range of motion (ROM of digits mildly decreased secondary to painful cracking skin) and deformity (deformity of the right 3rd nail bed releated to past injury). He exhibits no tenderness and no laceration. Skin: Skin is warm and dry. Capillary refill takes less than 2 seconds. No abrasion, no bruising, noburn, no ecchymosis, no laceration and no lesion noted. He is not diaphoretic. No erythema. No significant erythema, rash, vesicles. Skin is very dry and tight appearing, cracking at the signsof the knuckles. Fingers do seem a little swollen but are equal in size 2 fingers of the left hand. No tenderness. Psychiatric: He has a normal mood and affect. His behavior is normal. Nursing note and vitals reviewed. Assessment/Plan Diagnoses and all orders for this visit: Dermatitis - triamcinolone (KENALOG) 0.5 % ointment; Apply topically 2 (two) times a day For 2-4 weeks. We will treat with high potency steroid ointment as directed above. Advised topical emollient such as Vaseline. Differential includes dyshidrotic eczema but the hand does not have the typical vesicles and blisters. Discussed risks associated with long-term use or incorrect use of high potency steroids. Follow- up in 1 month if not improving or sooner if worsening. Marilou Ruiz PA-C documented in this encounter Plan of Treatment Not on filedocumented as of this encounter Visit Diagnoses Diagnosis Dermatitis - Primary Contact dermatitis and other eczema, due to unspecified cause documented in this encounter Care Teams Instrument Tester Relationship Specialty Start Date End Date None, Pcp PCP - General Radiation Oncologist 05/06/18 08/18/19 [address] [place] [address] documented as of this encounter
--- OUTSIDE RECORDS SUMMARY | 2022-03-22 23:38 | XMS_ITS | Encounter Summary ---
:[address] [facility] Address [address] [place] [address] Care Team Providers Name Role Phone None, Pcp Primary Care Provider Unavailable Encounter Details Date Type Department Care Team Description 07/29/2018 Orders Only [facility] Dimitri Goddard Right shoul calin pain, Orthopedics S, MANAGER ENGINE, EVAPORATOR OPERATOR unspecified chronicity [address] (Primary Dx) [place] [address] [place] [address] Social History Tobacco Use Types Packs/Day Years [...] or lytic or blastic lesion. Dimitri Goddard MANAGER ENGINE, EVAPORATOR OPERATOR IMG XR PROCEDURES documented in this encounter Visit Diagnoses Diagnosis Right shoulder pain, unspecified chronic ity - Primary documented in this encounter Care Teams Parts Room Assistant Relationship Specialty Start Date End Date None, Pcp PCP - General Varnish Supervisor 05/06/18 08/18/[address] [place] [phone] documented as of this encounter
--- OUTSIDE RECORDS SUMMARY | 2022-03-22 23:39 | XMS_ITS | Encounter Summary ---
:1995 Author Organization [facility] Address [address] [place] [address] Care Team Providers Name Role Phone Elsewhere, Pcp Primary Care Provider Unavailable Reason for Referral Outpatient (Routine) - Closed Specialty Diagnoses / Procedures Referred By Contact Refer red To Contact Diagnoses Pain Finger Right Myah Glasgow, PATSY, [facility] Procedures DX Fingers Right 2+ Views C.N.P., D.N.P. [address] [place] [address] Referral ID Status Reason Start Date Expiration Date Visits Requ ested Visits Authorized [id number] Closed 01/20/2022 01/20/2023 1 1 Reason for Visit Reason Comments Finger Injury Right ring finger Appointment Request (Routine) - Closed Specialty Diagnoses / Procedures Referred By Contact Refer red To Contact Family Medicine Referral ID Status Reason Start Date Expiration Date Visits Requ ested Visits Authorized [id number] Closed 01/19/2022 01/19/2023 1 1 Encounter Details Date Type Department Care Team Description 01/20/2022 Office Visit Department of Family Myah Glasgow, Pain Finger Right Medicine, [place] [facility], C.N.P., (Primary Dx) Clinic, [place] [address] [place] [phone] Social History Tobacco Use Types Packs/Day Years Used Date Smoking Tobacco: Never Smokeless Tobacco: Never Tobacco Cessation: Counseling Given: Not Answered Sex Assigned at Date Recorded Not on file documented as of this encounter Last Filed Vital Signs Vital Sign Reading Time Taken Comments Blood Pressure 121/75 01/20/2022 8:46 AM CDT Pulse 84 01/20/2022 8:46 AM CDT Temperature 36.9 ??C (98.4 ??F) 01/20/2022 8:46 AM CDT Respiratory Rate - - Oxygen Saturation - - Inhaled Oxygen Concentration - - Weight 131 kg (289 lb 3.9 oz) 01/20/2022 8:46 AM CDT Height - - Body Mass Index - - documented in this encounter Patient Instructions Patient InstructionsMyah Glasgow APRN, C.N.P., D.N.P. - 01/20/2022 9:00 AM CDT No fracture seen on xray. Supportive Treatment -Rest -Ice (15-20 minutes, 3 or 4 times daily). Avoid heat. -Activity modification (if an activity hurts, it should be modified or discontinued) -You may do Ibuprofen 600 mg every 6 hours or 800 mg every 8 hours. Max dose of 2400 mg a day. You can alternate with Tylenol 1000 mg three times a day. Max dose of 3000 mg a day. Take with food. -Perform gentle range of motion or exercises -You can kevin tape for support and comfort as needed. documented in this encounter Progress Notes Myah Glasgow APRN C.N.P., D.N.P. - 01/20/2022 9:00 AM CDT SUBJECTIVE CHIEF COMPLAINT/REASON FOR VISIT Dasha is a 26 y.o. male who presents for evaluation of Finger Injury (Right ring finger). HISTORY OF PRESENT ILLNESS Dasha with past medical history significant for allergies and obesity is here today by himself for evaluation of right ring finger pain. He closed the door fast and he hit his ring finger on the door knob 2 days ago. He called the nurse line yesterday and was advised to be seen within 24 hours. His finger was very purple, but improving.He can move his hand, but cannot move his ring finger much. His son grabbed his hand yesterday and he was in severe pain. It is 4/10 at rest, goes up to 8/10 with movement. Has iced a lot and some Tylenol, Tylenol seems to help. No numbness or tingling. Recent Travel or Exposure: None reported. REVIEW OF SYSTEMS Review of Systems negative unless otherwise indicated in HPI. History Review The patient's allergies, current medications, problem list and medical history portions of the patient's history were reviewed and updated as appropriate. OBJECTIVE Vitals: 01/20/22 0846 BP: 121/75 Patient Position: Sitting Pulse: 84 Temp: 36.9 ??C Weight: 131 kg TempSrc: Temporal PHYSICAL EXAM Constitutional General: He is not in acute distress. Appearance: Normal appearance. He is not ill-appearing. HENT Head: Normocephalic and atraumatic. Right Ear: External ear normal. Left Ear: External ear normal. Nose: No rhinorrhea. Eyes General: No scleral icterus. Right eye: No discharge. Left eye: No discharge. Conjunctiva/sclera: Conjunctivae normal. Cardiovascular Rate and Rhythm: Normal rate and regular rhythm. Pulses: Normal pulses. Heart sounds: Normal heart sounds. No murmur heard. No friction rub. No gallop. Pulmonary Effort: Pulmonary effort is normal. No respiratory distress. Breath sounds: Normal breath sounds. No stridor. No wheezing, rhonchi or rales. Abdominal General: Bowel sounds are normal. Musculoskeletal Cervical back: No muscular tenderness. Comments: Right 4th finger tender to touch proximally and dorsally. Swollen compare to contralateral finger, with limited ROM and strength due to pain. Pulse intact. Skin General: Skin is warm and dry. Capillary Refill: Capillary refill takes less than 2 seconds. Coloration: Skin is not pale. Findings: No bruising, erythema, lesion or rash. Neurological Mental Status: He is alert. Motor: No weakness. Coordination: Coordination normal. Gait: Gait normal. Psychiatric Mood and Affect: Mood normal. Behavior: Behavior normal. Thought Content: Thought content normal. Judgment: Judgment normal. ASSESSMENT / PLAN #1 Pain Finger Right, 4th Digit Xray negative for fracture. Conservative treatment discussed at this time with icing for comfort/pain, avoiding aggravating activities, and Ibuprofen 600 mg every 6 hours (max 2400 mg a day for not longer than 2 weeks), may add Tylenol 1000 mg three times a day as needed (max of 3000 mg a day). Followup in 4-6 weeks if symptoms not improving, sooner if worsening. Discussed considering kevin taperingto 3rd finger for support if needed. He feels he will be ok. - DX Fingers Right 2+ Views; Future; Expected date: 01/20/2022 Patient agrees with the plan of care from today's visit and denies further questions or concerns. 30 minutes spent total appointment, review of record, and documentation time, including counseling and education. Patient Instructions No fracture seen on xray. Supportive Treatment -Rest -Ice (15-20 minutes, 3 or 4 times daily). Avoid heat. -Activity modification (if an activity hurts, it should be modified or discontinued) -You may do Ibuprofen 600 mg every 6 hours or 800 mg every 8 hours. Max dose of 2400 mg a day. You can alternate with Tylenol 1000 mg three times a day. Max dose of 3000 mg a day. Take with food. -Perform gentle range of motion or exercises -You can kevin tape for support and comfort as needed. documented in this encounter Plan of Treatment Not on filedocumented as of this encounter Results DX Fingers Right 2+ Views (01/20/2022 9:30 AM CDT) Anatomical Region Laterality Modality Upper Extremity, Fingers, Musculoskeletal RST LOS, Right Digital Radiography Musculoskeletal ARZ LOS, Muskuloskeletal FLA LOS Specimen (Source) Anatomical Collection Method Collection Time Re ceived Time Location / / Volume Laterality 01/20/2022 9:36 AM CDT Impressions 01/20/2022 9:37 AM CDT 1. No acute bony abnormality is identified in the right ring finger. 2. There is soft tissue swelling about t he PIP joint. Narrative 01/20/2022 9:37 AM CDT EXAM: DX FINGERS RIGHT 2+ VIEWS COMPARISON: None. FINDINGS: There is soft tissue swelling about the PIP joint of the right ring finger. No fractures are identified. Mineralization and align ment are within normal limits. Procedure Note Kory Wells M.D. - 01/20/2022Format ting of this note might be different from the original. EXAM: DX FINGERS RIGHT 2+ VIEWS COMPARISON: None. FINDINGS: There is soft tissue swelling about the PIP joint of the right ring finger. No fractures are identified. Mineralization and align ment are within normal limits. IMPRESSION: 1. No acute bony abnormality is identifi ed in the right ring finger. 2. There is soft tissue swelling about t he PIP joint. Myah Glasgow APRN, C.N.P., D.N.P. IMG DIAGNOSTIC IMAG ING PROCEDURES documented in this encounter Visit Diagnoses Diagnosis Pain Finger Right - Primary Pain Finger Right documented in this encounter Care Teams Carbon Accountant Relationship Specialty Start Date End Date Elsewhere, Pcp PCP - General Internal Medicine 01/20/22 documented as of this encounter
--- OUTSIDE RECORDS SUMMARY | 2022-03-22 23:39 | XMS_ITS | Clinical Summary ---
:1995 Author Organization [facility] Address [address] [place] [address] Care Team Providers Name Role Phone Elsewhere, Pcp Primary Care Provider Unavailable Source Comments Patient records contain information from all sites at [facility]. For routine questions regarding patient records, call [phone] during business hours, M-F 8:00 AM - 5:00 PM Central Time. Record requests for emergency care only can be directed to [phone] at any time.[facility] Allergies Active Allergy Reactions Severity Noted Date Comments Pollen Extracts Itching 01/20/2022 Medications Medication Sig Dispensed Refills Start Date End Date Status fluticasone Administer 2 0 10/12/2021 10/12/2022 Act rock propionate (FLONASE) sprays into 50 mcg/actuation nostril(s). nasal spray levocetirizine Take 5 mg by 0 10/12/2021 A ctive (XYZAL) 5 mg tablet mouth. acetaminophen Take 500 mg by 0 A ctive (TYLENOL) 500 mg mouth every 6 tablet (six) hours as needed for pain. Active Problems Problem Noted Date Morbid Severe Obesity Due To Excess Calories Encounters Date Type Specialty Care Team Description 01/20/2022 Hospital Encounter Radiology Myah Glasgow, Pain F muna Right CREATIVE WRITING PROFESSOR, C.N.P., D.N.P. 01/20/2022 Office Visit Family Medicine Myah Glasgow, Pain Fing er Right CREATIVE WRITING PROFESSOR, C.N.P., (Primary Dx) D.N.P. 01/19/2022 Nurse Triage Family Medicine Carolina Boykin, Finger Inju ry; Triage R.N. from Last 3 Months Immunizations Name Administration Dates Next Due HepB Adult 05/16/2018 MMR 05/16/2018 Tdap 05/16/2018 influenza vaccine quad (FLUZONE/FLUARIX) (6 months and 05/16 older)(PF) Social History Tobacco Use Types Packs/Day Years [...] - - Body Mass Index - - Plan of Treatment Health Maintenance Due Date Last Done Comments HIV Screening 1995 Hepatitis C Screening 1995 Hepatitis B Vaccines (2 of 3 - 19+ 06/13/2018 05/16/2018 3-dose series) COVID-19 Vaccine (2 - Booster for 09/15/2020 07/21/2020 Kishore series) Influenza Vaccine (#1) 2022 05/16/2018 DTaP,Tdap,and Td Vaccines (2 - Td 05/16/2028 05/16/2018 or Tdap) Depression Screening (Annual Completed 01/20/2022 PHQ-2) Pneumococcal vaccine (0-64 years) Aged Out No longer eligible based on patient's age to complete this topic Procedures Procedure Name Priority Date/Time Associated Comments Diagnosis DX FINGERS RIGHT RAD - Routine 01/20/2022 9:30 Pain Finger Right Re sults for this 2+ VIEWS (most inpatients AM CDT procedure a re in and all the results outpatients) section. from Last 3 Months Results DX Fingers Right 2+ Views (01/20/2022 [...] tissue swelling about t he PIP joint. Hussain Geronimo APRN.N.P., D.N.P. IMG DIAGNOSTIC IMAG ING PROCEDURES from Last 3 Months Insurance Payer Benefit Plan Subscriber ID Effective Dates Phone Address Type / Group [facility] [id number] [facility] [phone] [address] [address] PPO [facility] [address] [place] [address] Care Teams It Risk Advisor Relationship Specialty Start Date End Date Elsewhere, Pcp PCP - General Internal Medicine 01/20/22
--- OUTSIDE RECORDS SUMMARY | 2022-03-22 23:39 | XMS_ITS | Encounter Summary ---
:[address] [facility] Address [address] [place] [address] Care Team Providers Name Role Phone Unavailable Primary Care Provider Unavailable Reason for Visit Reason Comments Finger Injury Triage Encounter Details Date Type Department Care Team Description 01/19/2022 Nurse Triage Department of [facility] Carolina Boykin, Finger Injury; Triage Medicine, [facility], in [place] [address] [place], [place] [address] [address] [place] [address] [phone] Social History Tobacco Use Types Packs/Day Years Used Date Smoking Tobacco: Never Assessed Sex Assigned at Date Recorded Not on file documented as of this encounter Miscellaneous Notes Telephone Encounter - Carolina Boykin RCorey. - 01/19/2022 11:38 AM CDT Chief Complaint / Reason for Call Patient is a 26 y.o. male calling regarding Finger Injury and Triage. Assessment Concern: Patient calling with concerns of finger injury. Reports he slammed his right hand in the door of the car last evening. States the right ring finger is swollen and bruised. Complains of significant pain in the finger. States he is unable to move the finger. Denies any bleeding or open areas. Fingernail is intact. Present for: < 24 hours Home cares tried: Ice Calling to request: Advice The recommended disposition is See a health care provider within 24 hours. Patient was warm transferred to [place] at the clinic for further assistance. Reason for Disposition Large swelling or bruise Protocols used: Finger [id number]-RP Care Advice Patient/Caregiver understands and will follow care advice?: Yes, able to teach back SEE PCP WITHIN 24 HOURS: * IF OFFICE WILL BE OPEN: You need to be examined within the next 24 hours. Call your doctor (or ERADICATOR/PA) when the office opens and make an appointment. * IF OFFICE WILL BE CLOSED: You need to be seen within the next 24 hours. A clinic or an urgent carecenter is often a good source of care if your doctor's office is closed or you can't get an appointment. PAIN MEDICINES: * For pain relief, you can take either acetaminophen, ibuprofen, or naproxen. * They are odqw-quu-vmogiiq (OTC) pain drugs. You can buy them at the [facility]. * ACETAMINOPHEN - REGULAR STRENGTH TYLENOL: Take 650 mg (two 325 mg pills) by mouth every 4 to 6 hours as needed. Each Regular Strength Tylenol pill has 325 mg of acetaminophen. The most you should take each day is 3,250 mg (10 pills a day). * ACETAMINOPHEN - EXTRA STRENGTH TYLENOL: Take 1,000 mg (two 500 mg pills) every 8 hours as needed. Each Extra Strength Tylenol pill has 500 mg of acetaminophen. The most you should take each day is 3,000 mg (6 pills a day). * IBUPROFEN (E.G., MOTRIN, ADVIL): Take 400 mg (two 200 mg pills) by mouth every 6 hours. The most you should take each day is 1,200 mg (six 200 mg pills), unless your doctor has told you to take more. * NAPROXEN (E.G., ALEVE): Take 220 mg (one 220 mg pill) by mouth every 8 to 12 hours as needed. You may take 440 mg (two 220 mg pills) for your first dose. The most you should take each day is 660 mg (three 220 mg pills a day), unless your doctor has told you to take more. USE A COLD PACK FOR PAIN, SWELLING, OR BRUISING: * Put a cold pack or an ice bag (wrapped in a moist towel) on the area for 20 minutes. * Repeat in 1 hour, then every 4 hours while awake. * Continue this for the first 48 hours (2 days) after an injury. * This will help decrease pain, swelling, and bruising. * Caution: Avoid frostbite. REMOVE RINGS: * If possible, remove any rings or jewelry from the injured finger. CALL BACK IF: * Pain becomes worse * You become worse documented in this encounter Plan of Treatment Not on filedocumented as of this encounter Visit Diagnoses Not on filedocumented in this encounter
--- OUTSIDE RECORDS SUMMARY | 2022-03-22 23:39 | XMS_ITS | Encounter Summary ---
:1995 Author Organization [facility] Address [address] [place] [address] Care Team Providers Name Role Phone Elsewhere, Pcp Primary Care Provider Unavailable Reason for Referral Outpatient (Routine) - Closed Specialty Diagnoses / Procedures Referred By Contact Refer red To Contact Diagnoses Pain Finger Right Myah Glasgow APRN, [facility] [place] [facility] Procedures DX Fingers Right 2+ Views C.N.P., D.N.P. [address] [place] [phone] Referral ID Status Reason Start Date Expiration Date Visits Requ ested Visits Authorized [id number] Closed 01/20/2022 01/20/2023 1 1 Reason for Visit Outpatient (Routine) - Closed Specialty Diagnoses / Procedures Referred By Contact Refer red To Contact Diagnoses Pain Finger Right Myah Glasgow APRN, [facility] [place] [facility] Procedures DX Fingers Right 2+ Views C.N.P., D.N.P. [address] [place] [address] Referral ID Status Reason Start Date Expiration Date Visits Requ ested Visits Authorized [id number] Closed 01/20/2022 01/20/2023 1 1 Encounter Details Date Type Department Care Team Description 01/20/2022 Hospital Encounter Department of Myah Glasgow, Pain Finger Right Radiology in [place] D.N.P. [address] [place] [phone] Social History Tobacco Use Types Packs/Day Years Used Date Smoking Tobacco: Never Smokeless Tobacco: Never Sex Assigned at Date Recorded Not on file documented as of this encounter Medications at Time of Discharge Medication Sig Dispensed Refills Start Date End Date acetaminophen (TYLENOL) Take 500 mg by mouth 0 500 mg tablet every 6 (six) hours as needed for pain. fluticasone propionate Administer 2 sprays 0 09/2210/12/2022 (FLONASE) 50 into nostril(s). mcg/actuation nasal spray levocetirizine (XYZAL) 5 Take 5 mg by mouth. 0 mg tablet documented as of this encounter Plan of Treatment Not on filedocumented as of this encounter Procedures Procedure Name Priority Date/Time Associated Comments Diagnosis DX FINGERS RIGHT RAD - Routine 01/20/2022 9:30 Pain Finger Right Re sults for this 2+ VIEWS (most inpatients AM CDT procedure a re in and all the results outpatients) section. documented in this encounter Results DX Fingers Right 2+ [...] swelling about t he PIP joint. Myah S Myah GARNER, C.N.P., D.N.P. IMG DIAGNOSTIC IMAG ING PROCEDURES documented in this encounter Visit Diagnoses Diagnosis Pain Finger Right documented in this encounter Care Teams Immigration Judge Relationship Specialty Start Date End Date Elsewhere, Pcp PCP - General Internal Medicine 01/20/22 documented as of this encounter
--- NOTE | 2022-03-23 12:18 | ED.NECK ---
HPI - Neck Pain/Injury General Chief Complaint: Neck Injury/Pain Stated Complaint: Injured Neck after Fall Time Seen by Provider: 03/22/22 22:51 History of Present Illness HPI Narrative: 26-year-old young man here with with concern of left neck pain. Yesterday slipped while at work, caught himself. Did not hit his head did not actually fall to ground and has now had increasing left-sided neck pain radiating into shoulder and feels pain down his left arm through the upper arm to his elbow. Has not had significant neck injury prior. Rotational movements particularly of the neck or transitioning to seated and lying down causes pain. Stabbing pain. [place] driving [place]. Was sent home today. Sounds like does see a chiropractor not infrequently. Review of Systems Status of ROS: Reports: 6 or more systems reviewed and unremarkable except as noted in History and below Exam Narrative: Exam Narrative: Is pleasant. Large man. Clearly uncomfortable. Favoring his left arm. Holding his neck flexed to the right. Any movement of his neck to the left or rotation to the left causes a good deal of pain. Uncomfortable but not terribly sore to palpation deep in paracervical musculature of the neck or trapezius or rhomboids. Has good strength in his left arm though I think is limited to pain. Intact sensation and pulses. Breathing easily. Sclerae are injected. Head looks atraumatic. No midline neck or back tenderness. Const: Vital Signs, click to edit/add: Vital Signs - 24 hr 03/22/22 21:50 Temperature 98.0 F Pulse Rate [Right Pulse Oximeter] 65 Respiratory Rate 20 Blood Pressure [Ri ght Upper Arm] 143/85 H Pulse Oximetry 98 Oxygen Delivery Me thod Room Air Documenting provider has reviewed patient's vital signs: yes Course Vital Signs Vital signs: Initial Vital Signs Temperature 98.0 F 03/22/22 21:50 Temperature Source Temporal Artery Scan 03/22/22 21:50 Pulse Rate 65 03/22/22 21:50 Pulse Rhythm 03/22/22 21:50 Respiratory Rate 20 03/22/22 21:50 Blood Pressure 143/85 H 03/22/22 21:50 Blood Pressure Mean 104 03/22/22 21:50 Blood Pressure Position Sitting 03/22/22 21:50 Pulse Oximetry 98 03/22/22 21:50 Oxygen Delivery Method 03/22/22 21:50 Vital Signs Temperature 98.0 F 03/22/22 21:50 Pulse Rate 65 03/22/22 21:50 Respiratory Rate 20 03/22/22 21:50 Blood Pressure 143/85 H 03/22/22 21:50 Pulse Oximetry 98 03/22/22 21:50 Oxygen Delivery Method 03/22/22 21:50 Temperature 98.0 F 03/22/22 21:50 Pulse Rate 65 03/22/22 21:50 Respiratory Rate 20 03/22/22 21:50 Blood Pressure 143/85 H 03/22/22 21:50 Pulse Oximetry 98 03/22/22 21:50 Oxygen Delivery Method 03/22/22 21:50 MDM - Neck Pain/Injury MDM Narrative Medical decision making narrative: Given the persistent radicular discomfort ending at his elbow I would do have some concerns about disc injury/displacement and impingement. Otherwise looks to be possible facet issue and a ?pinched nerve?. Discussed potential temporizing effects of anesthetic injections but does not seem to involve a lot of muscle spasm. He would like to defer that with spouse preference for ?muscle relaxer?. Regardless and prednisone to be indicated here. Discharge Plan Discharge Clinical Impression: Cervical radiculopathy, Neck sprain Patient Disposition: Home w/ Parent or Adult Condition: Stable Additional Instructions: Yes I would try ice packs to 3 times daily in the short term as discussed. It is possible soft collar would be helpful just for comfort. In 24 hours or so might start alternating cold with warm packs. Can take up to 800 mg of ibuprofen or up to 1000 mg of acetaminophen per dose. Keep in mind that each tablet of Percocet of 325 mg of acetaminophen. In place of ibuprofen could take up to 500 mg naproxen 2 times daily. I think it is appropriate to follow-up with your chiropractor but I would take good care in manipulation of the neck. You might follow up in primary care to start moving towards physical therapy as well. Upper level imaging might be indicated as you have consistent radiating discomfort down your arm. Percocet, Flexeril, prednisone from [facility] Take the prednisone as 60 mg daily on days 1 through 2; 40 mg daily days 3 through 6; 20 mg daily days 7 through 9. Stand Alone [facility]: [facility] Info Inst[facility]
== END 2022-03-22 23:42 | disposition home or self-care (01) ==
LOC: ED 23:35
PROVIDERS: Emergency Provider Family Medicine
DX: M54.12 Radiculopathy, cervical region (principal); W01.0XXA Fall on same level from slipping, tripping and stumbling without subsequent striking against object, initial encounter
CPT/HCPCS: 99283; 99284